=== PATIENT | female | born 1990 | race Hispanic/Latino ===

== ENCOUNTER 2020-05-24 14:16 | Inpatient (IN) | payer OTHER ==
[~2020-05-24 14:16] MED LIST: Bupivacaine HCl 0.5%/Epinephrine 1:200,000/PF 30 ml Vial ONE
[2020-05-24 16:44] LABS: Bacteria/HPF 2+ HPF (None Seen); Bilirubin Negative (Negative); Blood, Urine 2+ (Negative); Clarity Turbid (Clear); Glucose, Urine (Dipstick) Normal (Negative); Ketone, Urine Negative (Negative); Leukocyte Negative Leu/uL (Negative); Nitrite Negative (Negative); Protein, Urine (Dipstick) 600 mg/dL (Neg-Trace); Specific Gravity, Urine 1.027 (1.002-1.036); Transitional Epithelial 0-3 HPF (None Seen); Urobilinogen Normal mg/dL (Less than 2); WBC/HPF 21-50 HPF (0-3); pH, Urine 6.5 (5.0-9.0)
[2020-05-24 16:44] LABS: #Lymphocytes 1.1 thou/uL (1.20-3.40); #Monocytes 0.2 thou/uL (0.11-0.59); #Neutrophils 6.3 thou/uL (1.40-6.50); %Basophils 0.1 % (0.0-1.0); %Eosinophils 0.2 % (0.0-10.0); %Lymphocytes 14.4 % (21.0-51.0); %Monocytes 2.1 % (0.0-10.0); %Neutrophils 83.1 % (42.0-75.0); Hemoglobin 12.1 g/dL (12.0-16.0); Mean Corpuscular HGB CONC 31.5 g/dL (32.0-36.0); Mean Corpuscular Hemoglobin 28.9 pg (27.0-31.0); Mean Corpuscular Volume 91.6 fL (78.0-98.0); Mean Platelet Volume 10.6 fL (7.4-10.4); Platelet Count 141 thou/uL (130-400); RBC Distribution Width 14.4 % (11.5-14.5); Red Blood Cell (RBC) Count 4.19 mill/uL (4.20-5.40); White Blood Cell (WBC) Count 7.6 thou/uL (4.8-10.8)
[2020-05-24 16:50] LABS: Creatinine, Urine 185.97 mg/dL (47-110)
--- NOTE | 2020-05-24 16:53 | RAD ---
Exam: Chest one view HISTORY:COVID positive patient. patient. Chest pain and shortness of breath. Comparison: None FINDINGS: Cardiac silhouette: Normal Aorta: Unremarkable Pulmonary vessels: Normal Costophrenic angles: Clear LUNGS: Patchy interstitial and alveolar opacities predominantly in the lower lobes. Pneumothorax: None Osseous abnormalities: None IMPRESSION: Patchy interstitial and alveolar opacities, predominantly in the lower lobes. Continued s urveillance is recommended.
[2020-05-24 17:06] LABS: ALT (SGPT) 26 U/L (8-55); AST (SGOT) 61 U/L (5-34); Albumin 2.7 g/dL (3.5-5.0); Alkaline Phosphatase 310 U/L (40-110); Anion Gap 16 mmol/L (10-20); BUN (Urea Nitrogen) 11 mg/dL (7.0-18.7); Bilirubin, Total 0.5 mg/dL (0.2-1.2); Calc. Creatinine Clearance 0 mL/min (70-130); Calcium 8.1 mg/dL (7.8-10.44); Carbon Dioxide 13 mmol/L (22-29); Chloride 113 mmol/L (98-107); Estimated GFR-MDRD 87; Globulin 3.5 g/dL (2.4-3.5); Glucose 92 mg/dL (70-105); Lipase 43 U/L (8-78); Potassium 4.2 mmol/L (3.5-5.1); Protein, Total 6.2 g/dL (6.0-8.3); Sodium 138 mmol/L (136-145)
[2020-05-24] MEDS ORDERED: hydrALAZINE 20 MG/ML VIAL ONE (19:03)
[2020-05-24] MEDS ORDERED: Magnesium Sulfate 20 gm/500 ml 20 GM/500 ML BAG ONE ×2 (19:03)
[2020-05-24] MEDS ORDERED: Ibuprofen 800 MG TAB PO PRN (19:06)
[2020-05-24] MEDS ORDERED: HYDROcodone/Acetaminophen 5/325 mg Tablet PO PRN ×2 (19:06)
[2020-05-24] MEDS ORDERED: Ondansetron PF 4 MG/2 ML Vial IVP PRN (19:06)
[2020-05-24] MEDS ORDERED: Lidocaine 1% (PF) 30 ML VIAL SC PRN (19:06)
[2020-05-24] MEDS ORDERED: hydrALAZINE 20 MG/ML VIAL SLOW IVP PRN (19:06)
[2020-05-24] MEDS ORDERED: Promethazine HCl 25 MG/ML VIAL IM PRN (19:06)
[2020-05-24] MEDS ORDERED: Butorphanol Tartrate 1 MG/ML VIAL SLOW IVP PRN (19:06)
[2020-05-24] MEDS ORDERED: Calcium Gluc 4.6 MEQ/10 ML (100 MG/ML) SLOW IVP PRN (19:06)
[2020-05-24] MEDS ORDERED: NS / Oxytocin 40 units/1000ml 1,000 ML IV PRN (19:06)
--- NOTE | 2020-05-24 19:06 | PDOC.BPN ---
- Brief Progress Note OB Faculty Patient seen at bedside, LDR 7 DX: severe PRE, COVID pos status from May 17, labor at 35 weeks See full dictation I have tiger texted south
[2020-05-24] MEDS ORDERED: Betamet Acet/Betamet Na Ph 30 MG/5 ML VIAL ONE (19:07)
[2020-05-24] MEDS ORDERED: Penicillin G Potassium 5 MILL.UNITS VIAL ONE (19:08)
[2020-05-24] MEDS: Magnesium Sulfate 20 gm/500 ml 20 GM/500 ML BAG IVPB SCH (19:09)
[2020-05-24] MEDS: Penicillin G Potassium 5 MILL.UNITS in Sodium Chloride 0.9% 100 ML IVPB SCH (19:12)
--- NOTE | 2020-05-24 19:12 | PDOC.BPN ---
- Brief Progress Note Other DX mild viral pneumonia on CXR from ER
[2020-05-24] MEDS ORDERED: Magnesium Sulfate 20 GM/WATER 500 ML BAG IVPB SCH (19:15)
--- NOTE | 2020-05-24 19:45 | HP ---
TIME OF EVALUATION: Roughly 1900 (1855) hours, room is [facility] room 7. The patient was brought up from the ER after being evaluated and worked up there for COVID positive status and chest discomfort. After she was deemed stable, she was transferred to Labor and Delivery. Patient of Dr. Boggs. HISTORY OF PRESENT ILLNESS: This is a 30-year-old, G1, P0 with a due date of June 30, who was at 34 weeks and 5 days, who tested positive for COVID on May 17 , but has not had a fever for 72 hours. She states that she has had increased cramping, a little bit of chest discomfort, a little bit of shortness of breath and noted some possible leakage of fluid at around 1:00 p.m. She has good movement. She does not have any diarrhea or vaginal bleeding. PAST MEDICAL HISTORY: Otherwise negative except for the COVID positive status on the 6th of this month. PAST SURGICAL HISTORY: None. ALLERGIES: NONE. SOCIAL HISTORY: Negative. OB HISTORY: She is a G1, P0, and sees Dr. Boggs. PHYSICAL EXAMINATION: VITAL SIGNS: She is lying in bed with a mask and first blood pressure was 165/ 103, pulse is in the 90s. She is afebrile. GENERAL: She is in no acute distress. EXTREMITIES: She does have some 2+ pitting edema at the feet. ABDOMEN: Gravid, but nontender. I performed a sterile speculum examination due to her possible rupture status and there was clear fluid per os. There was no need for an AmniSure. CERVICAL: I checked her cervix with a sterile glove and she is 6 cm dilated, 90 % effaced, 0 station. Cephalic. There are no vulvovaginal lesions. On the heart monitor, heart tones are in the 140s and reactive category I. Contractions are irregular on TOCO, but about every 3 to 5 minutes or so. LABORATORY DATA: She did have a cath urine in the ER, which showed proteinuria with a urine protein to creatinine ratio that was 5. She did have a slight bump in one of her liver function tests, but otherwise was normal. CBC was normal. Chest x-ray done in the ER showed mild changes compatible with lower lobe viral pneumonia. ASSESSMENT: This is a 30-year-old, G1 at 34 weeks and 5 days, I am at bedside now, who does not appear to be in any acute respiratory distress, COVID positive on the 6th of this month, but no fevers for 3 days. She has prelabor rupture of membranes, and is now in active phase of labor at 6 cm. Mild viral pneumonis on CXR PLAN: 1. Admit to Labor and Delivery. 2. Magnesium sulfate for blood pressure. 3. Apresoline p.r.n. 4. Steroids, now for lung maturity and this may even help her lung status. Per [facility], not contraindicated. 5. Penicillin for GBS coverage. 6. We will notify NICU of delivery. Job ID: [id number] [facility]
[2020-05-24] MEDS ORDERED: Fentanyl 4 mcg/Bup 0.1% Cadd 100 ML ONE (19:48)
[2020-05-24] MEDS ORDERED: Betamet Acet/Betamet Na Ph 30 MG/5 ML VIAL IM SCH (20:00)
[2020-05-24 20:30] LABS: HBSAg Index 0.17 S/CO (0-0.99); HIV (1/2) Antibody/Antigen Non-Reactive (NonReactive); HIV 1/2 INDEX 0.26 S/CO (<1.00); Hep B Surf Ag Non-Reactive S/CO (NonReactive)
[2020-05-24 20:51] LABS: Syphilis Antibody Nonreactive (Nonreactive); Syphilis Antibody Index 0.03 S/CO (<1.00 Non-Reactive)
--- NOTE | 2020-05-24 22:37 | PDOC.BPN ---
- Brief Progress Note CX still 6-7cm. I have ordered oxytocin for augmentation.
[2020-05-24] MEDS: NS w/ Oxytocin 10 units 500 ML IV SCH (22:42)
[2020-05-24] MEDS: Penicillin G 2.5 MILL.units 2.5 MILL.UNITS in Premix Bag 1 BAG IVPB SCH (23:29)
[2020-05-25] MEDS: Penicillin G 2.5 MILL.units 2.5 MILL.UNITS in Premix Bag 1 BAG IVPB SCH (03:11)
[2020-05-25] MEDS: Magnesium Sulfate 20 gm/500 ml 20 GM/500 ML BAG IVPB SCH ×2 (03:13→14:10)
[2020-05-25] MEDS ORDERED: Azithromycin 500 MG VIAL ONE (04:32)
[2020-05-25] MEDS ORDERED: Ketamine 50 MG/ML (10ML VIAL) ONE (04:52)
[2020-05-25] MEDS ORDERED: Oxytocin 10 UNITS/ML VIAL ONE (04:52)
[2020-05-25] MEDS ORDERED: PHENYLEPHRINE-NS 100 MCG/ML 10 ML SYRINGE ONE (05:06)
[2020-05-25] MEDS ORDERED: Dexamethasone 4 mg/ml Vial ONE ×2 (05:06→16:05)
[2020-05-25] MEDS ORDERED: Ondansetron PF 4 MG/2 ML Vial ONE (05:06)
[2020-05-25] MEDS ORDERED: Ketorolac Tromethamine 30 MG/ML VIAL ONE (05:06)
[2020-05-25] MEDS ORDERED: MORPHINE 5 MG/10 ML PF VIAL ONE (05:18)
[2020-05-25 05:19] LABS: Actual Bicarbonate (HCO3a) 12.1 mEq/L (22-28); Base Excess (BEa) -23.5 mEq/L (-2.0 to +3.0)
[2020-05-25 05:24] LABS: INR-International Normal Ratio 0.9; PTT 32.6 sec (22.9-36.1); Prothrombin Time 11.7 sec (12.0-14.7)
[2020-05-25 05:27] LABS: Base Excess -21.6 mEq/L (-2.0 to +3.0); pH (Cord, venous) 6.91 (7.32-7.43)
[2020-05-25 05:28] LABS: Actual Bicarbonate (HCO3v) 12 mEq/L (22-28)
[2020-05-25] MEDS ORDERED: L&D-Morphine 4 MG/ML VIAL SLOW IVP PRN (05:43)
[2020-05-25] MEDS ORDERED: Meperidine HCl/PF 25 MG/ML VIAL SLOW IVP PRN (05:43)
[2020-05-25] MEDS ORDERED: diphenhydrAMINE 50 MG/ML VIAL IVP PRN (05:43)
[2020-05-25] MEDS ORDERED: Ondansetron HCl/PF 4 MG/2 ML Vial IVP PRN (05:43)
[2020-05-25] MEDS ORDERED: Ketorolac Tromethamine 30 MG/ML VIAL IVP PRN (05:43)
[2020-05-25] MEDS ORDERED: Naloxone HCl 0.4 mg/ml Vial IV PRN (05:43)
[2020-05-25] MEDS ORDERED: HYDROmorphone 2 MG/ML VIAL SLOW IVP PRN (05:43)
[2020-05-25] MEDS ORDERED: Ondansetron PF 4 MG/2 ML Vial IVP PRN (05:43)
[2020-05-25] MEDS ORDERED: Promethazine HCl 25 MG/ML VIAL IM PRN (05:43)
[2020-05-25] MEDS ORDERED: Naloxone HCl 0.4 mg/ml Vial IVP PRN ×2 (05:43)
[2020-05-25] MEDS ORDERED: Promethazine HCl 25 MG SUPP PR PRN (05:43)
[2020-05-25] MEDS ORDERED: Communication Order-Pharmacy FS SCH (05:45)
[2020-05-25] MEDS ORDERED: Ketorolac Tromethamine 30 MG/ML VIAL IVP SCH (05:45)
--- NOTE | 2020-05-25 06:18 | OP ---
DATE OF PROCEDURE: 05/25/2020 PREOPERATIVE DIAGNOSES: 1. The patient with COVID positive status. 2. COVID viral pneumonia. 3. 34 weeks and 6 days. 4. Severe preeclampsia, on magnesium sulfate. 5. Second stage category II strip with severe recurrent variable decelerations down to the 60s, lasting 40-50 seconds. 6. Unsuccessful attempt at low vacuum (three pull attempts- no pop off). POSTOPERATIVE DIAGNOSES: 1. The patient with COVID positive status. 2. Placental abruption noted after hysterotomy entry (about 200-300 mL clot). 3. Baby position OP and asynclitic PROCEDURE PERFORMED: 1. Primary low transverse section via Pfannenstiel. 2. Two-layer hysterotomy closure. ASSISTANTS: 1. Svitlana Ortega MD. 2. Alen Lucas DO with the Family Medicine program. ANESTHESIA: Labor epidural that was dosed before coming back to the OR. ANTIBIOTICS: Ancef and Zithromax per protocol. FINDINGS: 1. There was about 200-300 mL of clot when we entered the hysterotomy. 2. Baby was asynclitic and in the occiput posterior position. 3. Vaginal hand was not necessary for extraction of the child through the hysterotomy. 4. NICU present for delivery. 5. Hemostasis post repair. 6. Three-vessel cord. 7. Baby required positive pressure ventilation, but did not have cardiac resuscitation. ESTIMATED BLOOD LOSS: About 400 mL, but the QBL is pending. IV FLUIDS: About 800 mL crystalloid. URINE OUTPUT: By Sawyer. COMPLICATIONS: None. COUNTS: Correct. PATHOLOGY: Placenta and umbilical arterial cord gas were sent. DISPOSITION: To prolonged recovery for her continued use of magnesium sulfate for her severe preeclampsia and we will start Lovenox at 12 hours due to her COVID positive state. INDICATION FOR : This patient had viral pneumonia from COVID and was unable to push successfully at the second stage and in the presence of severe variables, I attempted to do a low vacuum at +3 station. After three attempts and no pop-offs, I had no further descent. We then transported the patient to . It is important to note that she was having some dark red blood per vagina after I removed the vacuum in LDR 7. This was evidence of her abruption, which I believe was occurring in LDR 7. DESCRIPTION OF PROCEDURE: After proper informed consent was explained to the patient, she was transported to [facility]. Even though I called this a stat and everybody moved as fast as possible, the infectious disease precaution and getting the room prepared took about 15 minutes. Nonetheless, we moved as fast as possible and performed her under her dosed regional anesthetic. Low transverse skin incision was made in a Pfannenstiel fashion. Bovie cautery on cut mode was used to dissect the subcutaneous tissue off the fascia. Fascia was identified and entered in a transverse fashion with Bovie cautery on cut mode. Rectus muscles were off the midline with Newby scissors both inferiorly and superiorly. Rectus muscles were then . Underlying peritoneum was entered bluntly and an Patrick O retractor was then placed. A low transverse hysterotomy was made without bladder flap creation. No vaginal hand was noted, but the baby was noted to be impacted in the pelvis and I was able to free it and break the vacuum seal from the deeply engaged head. Dr. Ortega again attempted to remove some of the asynclitic position of the head and then I extracted the baby without complication. This was done without much complication. Baby was then delivered and the clamp was cut and handed to the NICU team without delayed cord clamping. We left a cord segment for cord gas and collected a cord blood sample. Placenta was then sent to Pathology and it was intact. It is important to note that as soon as we entered the hysterotomy, there was about 200 to 300 mL of dark adherent clot that expressed out of the hysterotomy. Hysterotomy was closed with #1 Monocryl in a running locking fashion. An imbricating layer was also done, so it was closed in two layers. Copious irrigation revealed no further bleeding and then the rectus muscles were reapproximated in the midline using 2-0 chromic. After confirming no bleeding under the fascial edge, fascia was closed with 0 PDS x2 in a running nonlocking fashion. Subcutaneous tissue was copiously irrigated and closed with plain gut. Skin was closed in a subcuticular fashion by Dr. Lucas without issues. All counts were correct. The baby was transported to the NICU and seemed to be stable. I do not have a 1 or 5-minute because they were still calculating those, but I did send a cord gas and I am awaiting that result. Again, we will continue her magnesium . The patient's arterial blood gas was 6.8 with the base excess -23. Again, baby did not need resuscitation at delivery and so I will follow. Job ID: [id number] [facility]
--- NOTE | 2020-05-25 06:24 | PDOC.BPN ---
- Brief Progress Note I reviewed abruption with the . Patient will return to [facility] for Mag. Dionne at 12 hrs. Baby's apgars were . I saw baby in NICU, stable on CPAP Bubble O2
--- NOTE | 2020-05-25 07:01 | PDOC.BPN ---
- Brief Progress Note Per Dr Sood and Dr Ortega, this patient qualifies for the convalescent plasma study. That research team will come talk to her. I relayed this message to Dr Boggs
--- NOTE | 2020-05-25 07:21 | PRG ---
DATE OF SERVICE: 05/25/2020 PREOP NOTE TIME: Roughly 0428 hours. In brief, I was called that the patient was ready for delivery. She initially tried to push, but she could not push as she was short of breath because of her COVID positive state and her viral pneumonia. I arrived and the patient's exam was complete, complete, and +3. There were deep severe variables, even though the patient has O2 by nasal cannula on, the patient is just not able to push. I did attempt a vacuum at +3 (low vacuum) and I tried three times with no pop-offs noted. However, there was no descent and there is no maternal effort because I do not think she can push because of her viral pneumonia. Because there is no descent and because of the deep variables, I have decided to do a because I just do not see this child descending anymore past +3. NICU was in the room with me. She is also having slight to moderate dark blood passing around the head...abruption? I have discussed this with the patient. I have called a stat and I have asked Family Medicine, OB attending to be present for a vaginal hand if needed. We will proceed with a C- section at this time. Anesthesia aware. L&D OR getting COVID ready. Job ID: [id number] [facility]
--- NOTE | 2020-05-25 08:01 | PDOC.BPN ---
- Brief Progress Note Lab check: PT and PTT normal
[2020-05-25] MEDS ORDERED: Morphine 4 MG/ML VIAL ONE (10:39)
--- NOTE | 2020-05-25 10:56 | PDOC.FPRHP ---
- History of Present Illness Chief Complaint: Shortness of breath/Chest pain History of Present Illness: 30 yo at 34.6 weeks gestation who delivered on 0 2019 via pLTCs and is a patient of Dr. Boggs. Consult was placed secondary to patients covid pneumonia and acute hypoxic respiratory failure. On 05/17 pt was diagnosed with COVID pna. Since that time she has been experiencing intermittent shortness of breath and chest pain. However yesterday she developed lower abdominal pain and worsening shortness of breath. She was seen in the emergency department and evaluated. She was found to be hypoxic and requiring supplemental oxygen. Patient also noted recent loss of fluid earlier in the day so she was admitted to the labor and delivery department for expectant management. Her labor progression was complicated by maternal hypoxia with poor pushing effort as well as presumed abruption indicated by variable decelerations with significant vaginal bleeding during labor. An emergency was the performed that was essentially uncomplicated and resulted in a male infant with APGARS of 1/7/ 7. The infant was subsequently admitted to the NICU. Since delivery patient has required 2 liters of supplemental oxygen to maintain oxygen saturations greater than 95%. She does note continued symptoms of shortness of breath. Patient also has experiencing poor ability to inspire deeply both secondary to her covid pneumonia as well as her recent . - Allergies/Adverse Reactions Allergies Allergy/AdvReac Type Severity Reaction Status Date / Time No Known Allergies Allergy Unverified 05/24/20 19:00 - Home Medications Medication Instructions Recorded Confirmed Type No Known 05/24/20 05/24/20 History - History PMHx: None PSHx: None FHx: Non contributory Social: Denies alcohol, tobacco, drugs - Review of Systems General: reports: fatigue. denies: fever/chills (none for 72hrs) Eyes: denies: vision changes, other ENT: denies: nasal congestion, rhinorrhea Respiratory: reports: cough, congestion, shortness of breath Cardiovascular: reports: chest pain. denies: palpitation, edema Gastrointestinal: reports: abdominal pain (normal post op). denies: nausea, vomiting, diarrhea Genitourinary: denies: dysuria, polyuria Skin: denies: rashes, lesions Musculoskeletal: denies: pain, tenderness Neurological: denies: numbness, weakness - Vital signs BP: 132/81 HR: 75 Sat: 90% 3L - Physical Exam Constitutional: NAD, awake, alert and oriented, well developed HEENT: EOMI, MMM Heart: RRR, normal S1/S2, no murmurs/rubs/gallops -Lungs: Poor inspiratory effort, decreased breath sounds throughout Abdomen: soft -Abdomen: Appropriately tender to touch, incision CDI, post- fundus palpable that is firm Musculoskeletal: normal structure, normal tone Neurological: no focal deficit Skin: good turgor, capillary refill <2 seconds Heme/Lymphatic: no unusual bruising or bleeding, no purpura Psychiatric: normal mood and affect, good judgment and insight FMR H&P: Results - Labs Result Diagrams: 05/24/20 16:31 05/24/20 16:31 Lab results: WBC 7.6 thou/uL (4.8-10.8) 05/24/20 16:31 Hgb 12.1 g/dL (12.0-16.0) 05/24/20 16:31 Hct 38.4 % (36.0-47.0) 05/24/20 16:31 MCV 91.6 fL (78.0-98.0) 05/24/20 16:31 Plt Count 141 thou/uL (130-400) 05/24/20 16:31 Neutrophils % 83.1 % (42.0-75.0) H 05/24/20 16:31 Sodium 138 mmol/L (136-145) 05/24/20 16:31 Potassium 4.2 mmol/L (3.5-5.1) 05/24/20 16:31 Chloride 113 mmol/L (98-107) H 05/24/20 16:31 Carbon Dioxide 13 mmol/L (22-29) L 05/24/20 16:31 BUN 11 mg/dL (7.0-18.7) 05/24/20 16:31 Creatinine 0.78 mg/dL (0.6-1.1) 05/24/20 16:31 Glucose 92 mg/dL (70-105) 05/24/20 16:31 Lactic Acid 1.3 mmol/L (0.5-2.2) 05/24/20 16:31 Calcium 8.1 mg/dL (7.8-10.44) 05/24/20 16:31 Total Bilirubin 0.5 mg/dL (0.2-1.2) 05/24/20 16:31 AST 61 U/L (5-34) H 05/24/20 16:31 ALT 26 U/L (8-55) 05/24/20 16:31 Alkaline Phosphatase 310 U/L (40-110) H 05/24/20 16:31 Serum Total Protein 6.2 g/dL (6.0-8.3) 05/24/20 16:31 Albumin 2.7 g/dL (3.5-5.0) L 05/24/20 16:31 Lipase 43 U/L (8-78) 05/24/20 16:31 Urine Ketones Negative mg/dL (Negative) 05/24/20 16:16 Urine Blood 2+ (Negative) A 05/24/20 16:16 Urine Nitrite Negative (Negative) 05/24/20 16:16 Ur Leukocyte Esterase Negative Velma/uL (Negative) 05/24/20 16:16 Urine RBC 7-10 HPF (0-3) A 05/24/20 16:16 Urine WBC 21-50 HPF (0-3) A 05/24/20 16:16 Ur Squamous Epith Cells 7-10 HPF (0-3) A 05/24/20 16:16 Urine Bacteria 2+ HPF (None Seen) A 05/24/20 16:16 FMR H&P: A/P - Problem List (1) COVID-19 Current Visit: Yes Status: Acute Code(s): U07.1 - COVID-19 (2) delivery delivered Current Visit: Yes Status: Acute Code(s): O82 - ENCOUNTER FOR DELIVERY WITHOUT INDICATION (3) Placenta abruption, delivered, current hospitalization Current Visit: Yes Status: Acute Code(s): O45.90 - PREMATURE SEPARATION OF PLACENTA, UNSP, UNSP TRIMESTER (4) labor in third trimester Current Visit: Yes Status: Acute Code(s): O60.03 - LABOR WITHOUT DELIVERY, THIRD TRIMESTER (5) Severe pre-eclampsia Current Visit: Yes Status: Acute Code(s): O14.10 - SEVERE PRE-ECLAMPSIA, UNSPECIFIED TRIMESTER (6) Viral pneumonia Current Visit: Yes Status: Acute Code(s): J12.9 - VIRAL PNEUMONIA, UNSPECIFIED FMR H&P: Upper Level - Plan Date/Time: 05/25/20 1055 COVAR PNA - Discussed case with Dr. Yepez - Pt on day 7-8 illness - Ordered remdesivir, convalescent plasma approval pending, dexamethasone daily , incentive spirometry - Currently on 3L O2, if requirement increases may need to consider high flow NC and pulm consult - Will attempt position changes/proning as tolerated - Supplemental O2 with goal >92% Pre E - Managed by primary Dr. Boggs - Mg level ordered, will lower mg to least effective dose - Once patient is off of Mg I feel she would benefit from transfer to [facility] obs floor S/p - PPROM and placental abruption - POD #0 - Progressing normally from post operative/ perspective Alen Lucas - PGY2
[2020-05-25] MEDS ORDERED: Morphine 2 MG/ML VIAL SLOW IVP PRN ×2 (12:04→17:45)
--- NOTE | 2020-05-25 12:22 | PDOC.PP ---
Post Progress Note Post Day #: 0 Subjective: pain controlled, main concern is sore throat when she swallows PO intake tolerated: no Flatus: no Ambulation: no Weight Weight 175 lb - Physical Examination General: NAD Respiratory: non-labored breathing (02 @ 95%+ on 2L, reported 88% off) Skin: CS incision dry & intact Neurological: no gross focal deficits Psychiatric: A&Ox3, normal affect Result Diagrams: 05/24/20 16:31 05/24/20 16:31 Additional Labs: Post Labs Blood Type O POSITIVE 05/24/20 17:29 Hep Bs Antigen Non-Reactive S/CO (NonReactive) 05/24/20 19:39 (1) COVID-19 Code(s): U07.1 - COVID-19 Status: Acute (2) delivery delivered Code(s): O82 - ENCOUNTER FOR DELIVERY WITHOUT INDICATION Status: Acute (3) labor in third trimester Code(s): O60.03 - LABOR WITHOUT DELIVERY, THIRD TRIMESTER Status: Acute (4) Severe pre-eclampsia Code(s): O14.10 - SEVERE PRE-ECLAMPSIA, UNSPECIFIED TRIMESTER Status: Acute (5) Viral pneumonia Code(s): J12.9 - VIRAL PNEUMONIA, UNSPECIFIED Status: Acute - Assessment/Plan POD1 sp stat CS for abruption and NRFHT after PPROM @ 34 weeks-in the setting of C19 positive and severe preeclampsia. -Continue mag PP but monitor closely for respiratory depression -Baby in NICU -I discussed starting Lovenox and pt consented for convalescent plasma today. Family medicine team consulted to assist in C19 management and optimization while requiring supplemental O2, recommendations appreciated. Plan to DC magnesium @ 24 hours PP.
[2020-05-25] MEDS ORDERED: Dexamethasone 20 MG/5 ML VIAL SLOW IVP SCH (14:00)
--- NOTE | 2020-05-25 14:07 | RAD ---
CHEST ONE VIEW: 05/25/20 COMPARISON: 05/24/20 exam. HISTORY: COVID positive with hypoxia. Heart size is enlarged. Diffuse bilateral infiltrative lung changes are not improved as compared to t he prior examination. Some of the changes of the right mid lung feel maybe slightly increased. IMPRESSION: Bilateral infiltrates. Some of the right mid lung field parenchymal changes are slightly more promine nt. POS: ANA
[2020-05-25] MEDS ORDERED: Morphine 4 MG/ML VIAL SLOW IVP PRN (14:33)
[2020-05-25] MEDS ORDERED: Dexamethasone 4 mg/ml Vial SLOW IVP SCH (15:30)
[2020-05-25] MEDS: Enoxaparin Sodium 40 MG/0.4 ML SYRINGE SC SCH (18:45)
[2020-05-26 05:36] LABS: Band 37 % (5-11); Hemoglobin 10.3 g/dL (12.0-16.0); Lymphocytes 5 % (21-51); MDiff Complete? YES; Mean Corpuscular HGB CONC 32.8 g/dL (32.0-36.0); Mean Corpuscular Volume 91.6 fL (78.0-98.0); Monocytes 2 % (0-10); Neutrophil 56 % (42-75); Nucleated RBC 1 % (0); Platelet Count 204 thou/uL (130-400); Platelet Morphology Comment Appears Adequate; RBC Distribution Width 14.2 % (11.5-14.5); Red Blood Cell (RBC) Count 3.42 mill/uL (4.20-5.40); White Blood Cell (WBC) Count 19.5 thou/uL (4.8-10.8)
[2020-05-26 05:45] LABS: ALT (SGPT) 15 U/L (8-55); AST (SGOT) 36 U/L (5-34); Albumin 2.3 g/dL (3.5-5.0); Alkaline Phosphatase 223 U/L (40-110); Anion Gap 11 mmol/L (10-20); BUN (Urea Nitrogen) 12 mg/dL (7.0-18.7); Bilirubin, Total 0.2 mg/dL (0.2-1.2); Calc. Creatinine Clearance 152 mL/min (70-130); Calcium 7.1 mg/dL (7.8-10.44); Carbon Dioxide 18 mmol/L (22-29); Chloride 110 mmol/L (98-107); Estimated GFR-MDRD Greater than 90; Globulin 2.8 g/dL (2.4-3.5); Glucose 131 mg/dL (70-105); Potassium 4.5 mmol/L (3.5-5.1); Protein, Total 5.1 g/dL (6.0-8.3); Sodium 134 mmol/L (136-145)
--- NOTE | 2020-05-26 06:31 | PDOC.FM ---
- Subjective Subjective: pt main complaints this morning is sore throat and fatigue. she is ambulating minimally within the room. has been using incentive spirometer which has improved her O2 sats. Currently on 3L with sats in mid 90's. Denies any fever, chills, headache. Has had recurrence of her elevated BP's - managed by primary. - Objective Vital Signs & Weight: Vital Signs (12 hours) Pulse Ox 05/25/20 20:00 93 L Weight Weight 79.379 kg I&O: 05/24/20 05/25/20 05/26/20 06:59 06:59 06:59 Intake Total 0 Output Total 330 50 Balance -330 -50 Result Diagrams: 05/26/20 04:59 05/26/20 04:59 Phys Exam - Physical Examination HEENT: moist MMs, sclera anicteric Diffuse rhonchi with scant wheezing, improved inspiration from yesterday Cardiovascular: RRR, no significant murmur Gastrointestinal: soft Appropriately TTP Musculoskeletal: no edema Neurological: non-focal, moves all 4 limbs Psychiatric: normal affect, A&O x 3 Deviation from normal: Surgical incision CDI Dx/Plan (1) COVID-19 Code(s): U07.1 - COVID-19 Status: Acute (2) delivery delivered Code(s): O82 - ENCOUNTER FOR DELIVERY WITHOUT INDICATION Status: Acute (3) Placenta abruption, delivered, current hospitalization Code(s): O45.90 - PREMATURE SEPARATION OF PLACENTA, UNSP, UNSP TRIMESTER Status: Acute (4) labor in third trimester Code(s): O60.03 - LABOR WITHOUT DELIVERY, THIRD TRIMESTER Status: Acute (5) Severe pre-eclampsia Code(s): O14.10 - SEVERE PRE-ECLAMPSIA, UNSPECIFIED TRIMESTER Status: Acute (6) Viral pneumonia Code(s): J12.9 - VIRAL PNEUMONIA, UNSPECIFIED Status: Acute - Plan Plan: COVID PNA - currently on 3L NC with stable sats - was not approved for remdesivir yesterday, will re-eval today - received convalescent plasma yesterday - primary complaint today is sore throat - will give lozenges - wheezing on exam, will add albuterol HFA Pre E - Managed by primary Dr. Boggs - Mg stopped last night - Pressures again elevated today, starting labetalol S/p - PPROM and placental abruption - POD #1 - Progressing normally from post operative/ perspective Alen Lucas - PGY2
[2020-05-26] MEDS: Lactated Ringer's 1,000 ML IV SCH (07:19)
[2020-05-26] MEDS: Dexamethasone 4 mg/ml Vial SLOW IVP SCH (08:05)
[2020-05-26] MEDS ORDERED: Dexamethasone 4 mg/ml Vial ONE (08:07)
[2020-05-26] MEDS: Cepastat Lozenges 1 LOZ PO PRN (09:39)
--- NOTE | 2020-05-26 10:56 | PDOC.PP ---
Post Progress Note Post Day #: 2 Subjective: no HINTON or blurry vision, minimal abdominal pain, main concern is cough and pain w swallowing, baby doing well in NICU PO intake tolerated: yes Flatus: no Ambulation: yes Vital Signs (12 hours) Pulse BP Pulse Ox 05/26/20 08:03 93 161/104 H 05/26/20 08:00 90 L Weight Weight 175 lb - Physical Examination General: NAD Respiratory: non-labored breathing (wheezing noted on exam w Dr. Lucas) Abdominal: no distention (mild tympany noted) Fundus firm & at: below umb Skin: CS incision dry & intact (dressing CDI), no rash Neurological: no gross focal deficits Psychiatric: A&Ox3, normal affect Result Diagrams: 05/26/20 04:59 05/26/20 04:59 Additional Labs: Post Labs Blood Type O POSITIVE 05/24/20 17:29 Hep Bs Antigen Non-Reactive S/CO (NonReactive) 05/24/20 19:39 (1) COVID-19 Code(s): U07.1 - COVID-19 Status: Acute (2) delivery delivered Code(s): O82 - ENCOUNTER FOR DELIVERY WITHOUT INDICATION Status: Acute (3) labor in third trimester Code(s): O60.03 - LABOR WITHOUT DELIVERY, THIRD TRIMESTER Status: Acute (4) Severe pre-eclampsia Code(s): O14.10 - SEVERE PRE-ECLAMPSIA, UNSPECIFIED TRIMESTER Status: Acute (5) Viral pneumonia Code(s): J12.9 - VIRAL PNEUMONIA, UNSPECIFIED Status: Acute - Assessment/Plan POD2 -1CS- pain controlled, tolerating diet and pain controlled -severe PIH- mag DC yesterday due to respiratory depression concerns, severe range BP today, hydralazine PRN ordered and will start labetalol 100mg BID and titrate as needed -C19 pos w viral pneumonia-Family Medicine assisting in management, rec'd plasma yesterday, pharmacy did not approve order for remdesivir despite ID recommendation, on 3L ( up from 2L yesterday but down for 4L overnight) with 02 sat stable while speaking full sentences. Albuterol ordered for wheezing on exam per FP team, lozenges ordered for painful swallowing.
[2020-05-26] MEDS ORDERED: Labetalol 100 MG TAB PO SCH (11:30)
[2020-05-26] MEDS: Albuterol 200 PUFF (6.7GM INHALER) INH SCH ×3 (12:49→21:08)
[2020-05-26] MEDS ORDERED: REMDESIVIR (EUA) 200 MG in Sodium Chloride 0.9% 250 ML 210 ML IV SCH (14:15)
[2020-05-26] MEDS: Enoxaparin Sodium 40 MG/0.4 ML SYRINGE SC SCH (18:17)
[2020-05-26] MEDS: Labetalol 100 MG TAB PO SCH (21:09)
[2020-05-27] MEDS: Albuterol 200 PUFF (6.7GM INHALER) INH SCH ×5 (05:15→21:15)
[2020-05-27 06:22] LABS: Hemoglobin 9.5 g/dL (12.0-16.0); Mean Corpuscular HGB CONC 32.2 g/dL (32.0-36.0); Mean Corpuscular Hemoglobin 29.2 pg (27.0-31.0); Mean Corpuscular Volume 90.7 fL (78.0-98.0); Mean Platelet Volume 9.5 fL (7.4-10.4); Platelet Count 214 thou/uL (130-400); RBC Distribution Width 14.4 % (11.5-14.5); Red Blood Cell (RBC) Count 3.27 mill/uL (4.20-5.40); White Blood Cell (WBC) Count 17.1 thou/uL (4.8-10.8)
--- NOTE | 2020-05-27 06:22 | PDOC.FM ---
- Subjective Subjective: Pt complained of extreme fatigue and worsening SOB with ambulation this morning. Pt feeling well after resting. Overnight de-satted after ambulation but has felt less SOB this morning. - Objective Vital Signs & Weight: Vital Signs (12 hours) Pulse BP Pulse Ox 05/27/20 04:00 94 L 05/26/20 21:09 93 122/69 05/26/20 20:00 95 Weight Weight 79.379 kg I&O: 05/25/20 05/26/20 05/27/20 06:59 06:59 06:59 Intake Total 0 Output Total 330 50 Balance -330 -50 Result Diagrams: 05/27/20 05:57 05/27/20 05:57 Phys Exam - Physical Examination Constitutional: NAD HEENT: moist MMs Respiratory: no wheezing Diffuse rhonchi, mildly tachypneic Cardiovascular: RRR, no significant murmur Gastrointestinal: soft, non-tender Musculoskeletal: edema present Neurological: moves all 4 limbs Psychiatric: normal affect, A&O x 3 Skin: cap refill <2 seconds Dx/Plan (1) COVID-19 Code(s): U07.1 - COVID-19 Status: Acute (2) delivery delivered Code(s): O82 - ENCOUNTER FOR DELIVERY WITHOUT INDICATION Status: Acute (3) Placenta abruption, delivered, current hospitalization Code(s): O45.90 - PREMATURE SEPARATION OF PLACENTA, UNSP, UNSP TRIMESTER Status: Acute (4) labor in third trimester Code(s): O60.03 - LABOR WITHOUT DELIVERY, THIRD TRIMESTER Status: Acute (5) Severe pre-eclampsia Code(s): O14.10 - SEVERE PRE-ECLAMPSIA, UNSPECIFIED TRIMESTER Status: Acute (6) Viral pneumonia Code(s): J12.9 - VIRAL PNEUMONIA, UNSPECIFIED Status: Acute - Plan Plan: COVID PNA - currently on 5L NC with sats in mid 90's. Worsening clinical appearance. ABG pH: 7.42, pCO2: 31, pO2: 63 - pt meets threshould for high flow nasal cannula and would benefit from closer respiratory monitoring. Will plan to transfer to [facility] - approved for remdesivir yesterday - received convalescent plasma 2 days ago - albuterol HFA and lozenges for sore throat Pre E - Managed by primary Dr. Boggs - Mg stopped two days ago but still experiencing severe range - PRN hydralazine and labetalol started yesterday with improvement but continued intermittent elevation S/p - PPROM and placental abruption - POD #2 - Progressing normally from post operative/ perspective Alen Lucas - PGY2
[2020-05-27 06:37] LABS: Actual Bicarbonate (HCO3a) 20.1 mEq/L (22-28); Base Excess (BEa) -3.5 mEq/L (-2.0 to +3.0); CO2 Tension 31.5 mmHg (35.0-45.0); Calcium, Ionized (arterial) 1.11 mmol/L (1.12-1.30); Carboxyhemoglobin (COHb) 0.3 gm% (0.0-3.0); Hemoglobin (Hb) 11.2 g/dL (12.0-16.0); O2 Tension (PaO2), arterial 62.9 mmHg (80.0-100.0); Potassium - ABG Lab 4.03 mmol/L (3.70-5.30); pH, Arterial 7.42 (7.35-7.45)
[2020-05-27 06:38] LABS: Puncture Site LRA
[2020-05-27 06:39] LABS: ALV-art Gradient 182.925 (0-20)
[2020-05-27 06:42] LABS: Band 11 % (5-11); Lymphocytes 7 % (21-51); MDiff Complete? YES; Metamyelocyte 1 % (0-0); Monocytes 3 % (0-10); Myelocyte 7 % (0-0); Neutrophil 71 % (42-75); Nucleated RBC 1 % (0); Platelet Morphology Comment Appears Adequate; Polychromasia SLIGHT = 2-3 cells (100X) (0-2/hpf)
[2020-05-27 06:44] LABS: ALT (SGPT) 13 U/L (8-55); AST (SGOT) 35 U/L (5-34); Albumin 2.3 g/dL (3.5-5.0); Alkaline Phosphatase 216 U/L (40-110); Anion Gap 12 mmol/L (10-20); BUN (Urea Nitrogen) 17 mg/dL (7.0-18.7); Bilirubin, Total 0.3 mg/dL (0.2-1.2); Calc. Creatinine Clearance 175 mL/min (70-130); Calcium 7.4 mg/dL (7.8-10.44); Carbon Dioxide 20 mmol/L (22-29); Chloride 113 mmol/L (98-107); Estimated GFR-MDRD Greater than 90; Globulin 2.8 g/dL (2.4-3.5); Glucose 76 mg/dL (70-105); Potassium 4.2 mmol/L (3.5-5.1); Protein, Total 5.1 g/dL (6.0-8.3); Sodium 141 mmol/L (136-145)
[2020-05-27 06:45] LABS: ALT (SGPT) 12 U/L (8-55); AST (SGOT) 38 U/L (5-34); Albumin 2.3 g/dL (3.5-5.0); Alkaline Phosphatase 213 U/L (40-110); Bilirubin, Direct 0.2 mg/dL (0.1-0.3); Bilirubin, Total 0.2 mg/dL (0.2-1.2); Protein, Total 5.1 g/dL (6.0-8.3)
[2020-05-27] MEDS ORDERED: Ibuprofen 600 MG TAB PO PRN (07:37)
--- NOTE | 2020-05-27 07:44 | RAD ---
EXAM: Single view of the chest HISTORY: Hypoxia COMPARISON: 05/24/2020 FINDINGS: Single view of the chest shows a normal sized cardiomediastinal silhouette. Scattered airsp vincent opacities are seen in bilateral lower lobes. The bones are unremarkable. IMPRESSION: Bilateral lower lobe infiltrates
[2020-05-27] MEDS: Labetalol 100 MG TAB PO SCH ×2 (07:59→20:13)
[2020-05-27] MEDS: Dexamethasone 4 mg/ml Vial SLOW IVP SCH (09:06)
[2020-05-27] MEDS: Cepastat Lozenges 1 LOZ PO PRN (09:06)
--- NOTE | 2020-05-27 12:38 | PDOC.PP ---
Post Progress Note Post Day #: 2 Subjective: Visit conducted using [employer] tele[employer] services. S: feeling better than yesterday, she had her O2 off during our visit, she said she has just taken it off to void. Post op she is doing well, voiding, pain is controlled w NSAIDS, bleeding/lochia is minimal. She is ambulating and voiding well. In terms of C19 she said she feels better than she yesterday, her throat is no longer sore and it is not painful to swallow. She denies having a cough. She denies fever/chills or pain that is not associated w CS. PO intake tolerated: yes Flatus: yes Ambulation: yes Vital Signs (12 hours) Pulse BP Pulse Ox 05/27/20 07:59 93 122/69 05/27/20 04:00 94 L Weight Weight 175 lb BPs reviewed overnight at 130-140s/80s - Physical Examination General: NAD Respiratory: non-labored breathing (speaking full sentences) Neurological: no gross focal deficits Psychiatric: A&Ox3, normal affect Result Diagrams: 05/27/20 05:57 05/27/20 05:57 Additional Labs: Post Labs Blood Type O POSITIVE 05/24/20 17:29 Hep Bs Antigen Non-Reactive S/CO (NonReactive) 05/24/20 19:39 (1) COVID-19 Code(s): U07.1 - COVID-19 Status: Acute (2) delivery delivered Code(s): O82 - ENCOUNTER FOR DELIVERY WITHOUT INDICATION Status: Acute (3) labor in third trimester Code(s): O60.03 - LABOR WITHOUT DELIVERY, THIRD TRIMESTER Status: Acute (4) Severe pre-eclampsia Code(s): O14.10 - SEVERE PRE-ECLAMPSIA, UNSPECIFIED TRIMESTER Status: Acute (5) Viral pneumonia Code(s): J12.9 - VIRAL PNEUMONIA, UNSPECIFIED Status: Acute - Assessment/Plan POD2 (yesterday error, was POD1) -POD 2 CS, post op goals met, baby doing well in NICU per nurse report -severe preeclampisa w BP to mild range w labetalol 100mg BID, plan to continue , will titrate up to 200mg if severe range BP indicated medication change -[id number] well yesterday but with a late night set back, back from off O2 to 5L, currently weaned down to 2L @ 98% with plan to trial off again. Pt with plan to transfer to medical floor later today. She did complete plasma and was started on remdesivir yesterday, on oral steroids as well. Family medicine team managing viral pneumonia at this time.
[2020-05-27] MEDS: Azithromycin 500 MG in Sodium Chloride 0.9% 250 ML 250 ML IVPB SCH (14:20)
[2020-05-27] MEDS: NS w/ Oxytocin 10 units 500 ML IV SCH (16:02)
[2020-05-27] MEDS: REMDESIVIR (EUA) 100 MG in Sodium Chloride 0.9% 250 ML 230 ML IV SCH (16:12)
[2020-05-27] MEDS: Enoxaparin Sodium 40 MG/0.4 ML SYRINGE SC SCH (18:11)
[2020-05-27] MEDS ORDERED: hydrALAZINE 20 MG/ML VIAL SLOW IVP PRN (20:02)
[2020-05-28] MEDS: Albuterol 200 PUFF (6.7GM INHALER) INH SCH ×6 (01:10→21:20)
[2020-05-28 06:18] LABS: ALT (SGPT) 22 U/L (8-55); AST (SGOT) 55 U/L (5-34); Albumin 2.4 g/dL (3.5-5.0); Alkaline Phosphatase 208 U/L (40-110); Anion Gap 12 mmol/L (10-20); BUN (Urea Nitrogen) 14 mg/dL (7.0-18.7); Bilirubin, Total 0.3 mg/dL (0.2-1.2); Calc. Creatinine Clearance 178 mL/min (70-130); Calcium 7.5 mg/dL (7.8-10.44); Carbon Dioxide 19 mmol/L (22-29); Chloride 108 mmol/L (98-107); Estimated GFR-MDRD Greater than 90; Globulin 2.8 g/dL (2.4-3.5); Glucose 89 mg/dL (70-105); Protein, Total 5.2 g/dL (6.0-8.3); Sodium 135 mmol/L (136-145)
[2020-05-28 06:25] LABS: Band 5 % (5-11); Hemoglobin 9.6 g/dL (12.0-16.0); Lymphocytes 9 % (21-51); MDiff Complete? YES; Mean Corpuscular HGB CONC 31.6 g/dL (32.0-36.0); Mean Corpuscular Hemoglobin 28.6 pg (27.0-31.0); Mean Corpuscular Volume 90.7 fL (78.0-98.0); Mean Platelet Volume 9.1 fL (7.4-10.4); Metamyelocyte 2 % (0-0); Monocytes 3 % (0-10); Myelocyte 2 % (0-0); Neutrophil 79 % (42-75); Nucleated RBC 4 % (0); Platelet Count 227 thou/uL (130-400); RBC Distribution Width 14.8 % (11.5-14.5); Red Blood Cell (RBC) Count 3.35 mill/uL (4.20-5.40); White Blood Cell (WBC) Count 15.2 thou/uL (4.8-10.8)
--- NOTE | 2020-05-28 06:47 | PDOC.FM ---
- Subjective Subjective: Pt states she feels better today than yesterday. Feels her energy level is better as well and feels less short of breath. Did have increased O2 requirement again overnight. Denies any sx associated with her . - Objective Vital Signs & Weight: Vital Signs (12 hours) Temp Pulse Resp BP BP Pulse Ox 05/28/20 05:05 100.0 F H 103 H 20 134/67 94 L 05/28/20 00:00 100.1 F H 102 H 20 139/65 96 05/27/20 21:10 168/88 H 05/27/20 20:13 88 182/91 H 05/27/20 20:11 88 182/91 H 05/27/20 19:50 180/94 H 05/27/20 19:35 99.7 F H 88 20 182/91 H 95 Weight Weight 79.379 kg I&O: 05/26/20 05/27/20 05/28/20 06:59 06:59 06:59 Intake Total 0 490 Output Total 85 Balance -85 490 Result Diagrams: 05/28/20 05:38 05/28/20 05:39 Phys Exam - Physical Examination Constitutional: NAD HEENT: moist MMs Neck: full ROM Scattered rhonci, tachypnea Cardiovascular: RRR, no significant murmur Gastrointestinal: soft Incision CDI Musculoskeletal: no edema Neurological: non-focal Psychiatric: normal affect, A&O x 3 Skin: no rash, cap refill <2 seconds Dx/Plan (1) COVID-19 Code(s): U07.1 - COVID-19 Status: Acute (2) delivery delivered Code(s): O82 - ENCOUNTER FOR DELIVERY WITHOUT INDICATION Status: Acute (3) Placenta abruption, delivered, current hospitalization Code(s): O45.90 - PREMATURE SEPARATION OF PLACENTA, UNSP, UNSP TRIMESTER Status: Acute (4) labor in third trimester Code(s): O60.03 - LABOR WITHOUT DELIVERY, THIRD TRIMESTER Status: Acute (5) Severe pre-eclampsia Code(s): O14.10 - SEVERE PRE-ECLAMPSIA, UNSPECIFIED TRIMESTER Status: Acute (6) Viral pneumonia Code(s): J12.9 - VIRAL PNEUMONIA, UNSPECIFIED Status: Acute - Plan Plan: COVID PNA - again required elevated supplemental O2 levels overnight, on 5.5L satting 94% per morning vitals - approved for remdesivir - received convalescent plasma 3 days ago - azithro to cover for possible underlying bacterial pna, last dose today - albuterol HFA and lozenges for sore throat Pre E - Managed by primary Dr. Boggs - 's WNL - PRN hydralazine and titrating labetalol S/p - PPROM and placental abruption - POD #3 - Progressing normally from post operative/ perspective Alen Lucas - PGY2
[2020-05-28] MEDS: Labetalol 100 MG TAB PO SCH ×2 (08:58→20:52)
[2020-05-28] MEDS: Dexamethasone 4 mg/ml Vial SLOW IVP SCH (08:59)
[2020-05-28] MEDS: Azithromycin 500 MG in Sodium Chloride 0.9% 250 ML 250 ML IVPB SCH (11:59)
[2020-05-28] MEDS ORDERED: Sodium Chloride 0.9% 10 ML ONE (12:00)
[2020-05-28] MEDS: REMDESIVIR (EUA) 100 MG in Sodium Chloride 0.9% 250 ML 230 ML IV SCH (15:22)
[2020-05-28] MEDS: Enoxaparin Sodium 40 MG/0.4 ML SYRINGE SC SCH (17:02)
[2020-05-28] MEDS: hydrALAZINE 20 MG/ML VIAL SLOW IVP PRN (17:17)
--- NOTE | 2020-05-28 17:44 | PRG ---
DATE OF SERVICE: 05/28/2020 This was conducted using telemedicine at approximately 7:45 a.m., but this is a delayed dictation due to [employer] malfunction. SUBJECTIVE: Ms. Tamara Nunez is feeling better today. She reports no cough, no sore throat, and no fever or chills. She reports no abnormal vaginal bleeding and pain that is controlled with oral medication. She endorses shortness of breath when ambulating from her bed to the restroom. She is pumping and notes a minimal breast milk at this time, but has no breast concerns. OBJECTIVE: VITAL SIGNS: Within normal limits with the exception of her most recent O2 saturation at 95% on 2 L of nasal cannula. Her blood pressures have been in the normal range throughout the day and her most recent in the 130s/70s. She remains afebrile. GENERAL: No acute distress. Alert and oriented. Answers questions appropriately. LUNGS: Nonlabored breathing. Speaking in full sentences. ABDOMEN: No reported distention or incisional concerns. Incision is reportedly clean, dry, intact per nursing notes. PSYCHIATRIC: Affect, pleasant and appropriate. LABORATORY DATA: Most recent labs not able to review and report based on the [employer] capabilities. ASSESSMENT AND PLAN: Ms. Tamara Nunez is postoperative day 4, status post a primary section for nonreassuring heart tones and placental abruption at 34 weeks in labor. 1. Doing well postoperatively with postoperative goals met and pain controlled. 2. Severe preeclampsia with blood pressures well controlled with labetalol 200 mg b.i.d. 3. COVID-19, the patient continues to require between 2 and 5 L of oxygen by nasal cannula throughout the day with her highest oxygen requirement noted during times of ambulation and later in the evening. She is currently on oral dexamethasone, prophylactic Lovenox daily, oral remdesivir, and albuterol inhaler as needed. While her condition does not appear to be worsening, her improvements have been slow. Family Medicine recommendations and management of her respiratory viral pneumonia have been appreciated. Job ID: [id number]
[2020-05-28] MEDS: NS w/ Oxytocin 10 units 500 ML IV SCH (22:12)
[2020-05-29] MEDS: Albuterol 200 PUFF (6.7GM INHALER) INH SCH ×5 (01:24→17:30)
[2020-05-29] MEDS: hydrOXYzine 25 MG TAB PO PRN ×3 (01:24→20:29)
[2020-05-29] MEDS: Cepastat Lozenges 1 LOZ PO PRN ×4 (01:49→20:29)
[2020-05-29] MEDS: NS w/ Oxytocin 10 units 500 ML IV SCH (03:56)
[2020-05-29 05:52] LABS: Actual Bicarbonate (HCO3a) 16.3 mEq/L (22-28); Analyzer IN Cardio OR; Base Excess (BEa) -5.4 mEq/L (-2.0 to +3.0); Calcium, Ionized (arterial) 1.14 mmol/L (1.12-1.30); Carboxyhemoglobin (COHb) 0.2 gm% (0.0-3.0); Hemoglobin (Hb) 10.6 g/dL (12.0-16.0); Potassium - ABG Lab 4.13 mmol/L (3.70-5.30); pH, Arterial 7.49 (7.35-7.45)
[2020-05-29 05:53] LABS: CO2 Tension 21.7 mmHg (35.0-45.0)
[2020-05-29 05:54] LABS: O2 Tension (PaO2), arterial 52.4 mmHg (80.0-100.0)
[2020-05-29 05:55] LABS: ALV-art Gradient 205.675 (0-20)
--- NOTE | 2020-05-29 06:46 | PDOC.FM ---
- Subjective Subjective: Overnight required HFNC. Reports she feels a little better but also does not like the pressure of the air in her nose. Denies fever. Reports she misses her baby and would like to see more photos of him today. Would like to participate in the Priority study. - Objective MAR Reviewed: Yes Vital Signs & Weight: Vital Signs (12 hours) Temp Pulse Resp BP BP Pulse Ox 05/29/20 05:45 98.0 F 82 26 H 146/83 H 96 05/29/20 04:00 93 L 05/29/20 00:10 151/87 H 05/29/20 00:00 98.0 F 72 24 H 100 05/28/20 23:55 171/96 H 05/28/20 21:48 156/87 H 05/28/20 21:30 175/95 H 05/28/20 21:15 98.0 F 84 22 H 164/92 H 91 L 05/28/20 20:52 84 134/86 Weight Weight 79.379 kg I&O: 05/27/20 05/28/20 05/29/20 06:59 06:59 06:59 Intake Total 490 Balance 490 Result Diagrams: 05/29/20 06:19 05/29/20 06:19 Phys Exam - Physical Examination HFNC in placed. Tachypneic but comfortable Neck: supple bibasilar crackles Cardiovascular: RRR, no significant murmur Gastrointestinal: soft incision healing well, SubQ suture closure Musculoskeletal: no edema Neurological: moves all 4 limbs Psychiatric: normal affect, A&O x 3 Skin: no rash Dx/Plan - Plan Plan: Acute hypoxic Respiratory failure 2/2 COVID PNA - Overnight moved up to HFNC. SpO2 96% this AM - s/p Azithro to cover for coinfection with bacterial pna. Convalescent plasma on 05/25 - Continue Remdesiver - Albuterol HFA and lozenges for sore throat - Continue to trend daily labs including D-Dimer Pre E - Managed by primary Dr. Boggs - BP's severe range overnight. - PRN hydralazine and titrating labetalol s/p rLTCS - PPROM and placental abruption - POD #4 DVT ppx: Lovenox Addendum - Attending - Attending Attestation Date/Time: 05/29/20 1144 I personally evaluated the patient and discussed the management with Dr. Lord. I agree with the History, Examination, Assessment and Plan documented above with any addition or exceptions noted below. Started on HFNC last night due to increased work of breathing and decreased PO2. Will repeat ABG and CXR tomorrow. No concern for impending respiratory collapse at this time. Encouraged incentive spirometry today as it is difficulty for her to ambulate with the HFNC. Chair TID. Continue decadron and remdesivir.
[2020-05-29 06:52] LABS: ALT (SGPT) 16 U/L (8-55); AST (SGOT) 34 U/L (5-34); Albumin 2.4 g/dL (3.5-5.0); Alkaline Phosphatase 198 U/L (40-110); Anion Gap 12 mmol/L (10-20); BUN (Urea Nitrogen) 12 mg/dL (7.0-18.7); Bilirubin, Total 0.3 mg/dL (0.2-1.2); Calc. Creatinine Clearance 202 mL/min (70-130); Carbon Dioxide 19 mmol/L (22-29); Chloride 113 mmol/L (98-107); Estimated GFR-MDRD Greater than 90; Glucose 104 mg/dL (70-105); Potassium 4.2 mmol/L (3.5-5.1); Protein, Total 5.4 g/dL (6.0-8.3); Sodium 140 mmol/L (136-145)
[2020-05-29 06:54] LABS: Hemoglobin 9.7 g/dL (12.0-16.0); Mean Corpuscular HGB CONC 32.8 g/dL (32.0-36.0); Mean Corpuscular Hemoglobin 29.7 pg (27.0-31.0); Mean Corpuscular Volume 90.6 fL (78.0-98.0); Platelet Count 277 thou/uL (130-400); RBC Distribution Width 14.6 % (11.5-14.5); Red Blood Cell (RBC) Count 3.28 mill/uL (4.20-5.40); White Blood Cell (WBC) Count 14.3 thou/uL (4.8-10.8)
[2020-05-29] MEDS: Dexamethasone 4 mg/ml Vial SLOW IVP SCH (08:26)
[2020-05-29] MEDS: Labetalol 100 MG TAB PO SCH ×3 (08:27→20:28)
[2020-05-29 08:33] LABS: Band 2 % (5-11); Lymphocytes 17 % (21-51); MDiff Complete? YES; Monocytes 3 % (0-10); Neutrophil 78 % (42-75); Nucleated RBC 1 % (0)
[2020-05-29] MEDS: REMDESIVIR (EUA) 100 MG in Sodium Chloride 0.9% 250 ML 230 ML IV SCH (15:27)
[2020-05-29] MEDS: Enoxaparin Sodium 40 MG/0.4 ML SYRINGE SC SCH (17:30)
[2020-05-29] MEDS: Acetaminophen 500 MG TAB PO PRN (20:28)
[2020-05-30] MEDS: hydrALAZINE 20 MG/ML VIAL SLOW IVP PRN (00:40)
[2020-05-30] MEDS: Cepastat Lozenges 1 LOZ PO PRN ×2 (00:42→22:11)
[2020-05-30] MEDS: NS w/ Oxytocin 10 units 500 ML IV SCH ×2 (00:49→22:31)
[2020-05-30] MEDS: Albuterol 200 PUFF (6.7GM INHALER) INH SCH ×7 (00:50→21:36)
[2020-05-30 05:47] LABS: ALT (SGPT) 17 U/L (8-55); AST (SGOT) 30 U/L (5-34); Albumin 2.4 g/dL (3.5-5.0); Alkaline Phosphatase 197 U/L (40-110); Anion Gap 12 mmol/L (10-20); BUN (Urea Nitrogen) 14 mg/dL (7.0-18.7); Bilirubin, Total 0.3 mg/dL (0.2-1.2); Calc. Creatinine Clearance 206 mL/min (70-130); Calcium 7.8 mg/dL (7.8-10.44); Carbon Dioxide 18 mmol/L (22-29); Chloride 113 mmol/L (98-107); Estimated GFR-MDRD Greater than 90; Globulin 2.9 g/dL (2.4-3.5); Glucose 79 mg/dL (70-105); Potassium 4.1 mmol/L (3.5-5.1); Protein, Total 5.3 g/dL (6.0-8.3); Sodium 139 mmol/L (136-145)
--- NOTE | 2020-05-30 06:47 | PDOC.PP ---
Post Progress Note Post Day #: 5 Subjective: 30 y/o F post op pLTCS for nonreassuring FHT's PT is COVID-19 + Nurse reports no acute overnight events. She was moved to [facility] per admin request due to covid-19 pos status. she remains on HFNC @ 4 L on 40 FIO2. No desaturation episodes overnight. she desats when mobile. pain controlled. BP: had one pressure 0040 severe range. received 10 mg hydralazine and bp's lowered. PO intake tolerated: yes Ambulation: yes Vital Signs (12 hours) Temp Pulse Resp BP BP Pulse Ox 05/30/20 03:42 98.0 F 84 31 H 132/80 98 05/30/20 01:55 81 137/76 05/30/20 00:40 72 180/97 H 05/30/20 00:24 98.1 F 72 25 H 180/97 H 98 05/29/20 20:28 75 05/29/20 20:00 98.6 F 84 24 H 140/82 100 Weight Weight 79.379 kg - Physical Examination General: NAD Skin: CS incision dry & intact Result Diagrams: 05/29/20 06:19 05/30/20 04:44 Additional Labs: Post Labs Blood Type O POSITIVE 05/24/20 17:29 Hep Bs Antigen Non-Reactive S/CO (NonReactive) 05/24/20 19:39 - Assessment/Plan 1. post op pLTCS for nonreassuring FHT's and placental abruption @ 34 wga in labor - incision clean dry and intact per nurse. 2. COVID-19 - day 4 remdesivir - received convalescent plasma 05/25 - decadron day 5 - s/p azithro - on HFNC @ 4 L on 40 FIO2 - managed by service, following care recs. 3. Pre-E - TID labetalol - one sever range pressure overnight treated with 10 mg hydralazine. Care plan discussed with Dr. Rios who is in agreement with above stated plan. Addendum - Attending - Attending Attestation Date/Time: 05/30/20 2217 I personally evaluated the patient and discussed the management with Dr. Garcia. I agree with the History, Examination, Assessment and Plan documented above.
[2020-05-30 07:10] LABS: Actual Bicarbonate (HCO3a) 16.8 mEq/L (22-28); Base Excess (BEa) -5.8 mEq/L (-2.0 to +3.0); Calcium, Ionized (arterial) 1.19 mmol/L (1.12-1.30); Carboxyhemoglobin (COHb) 0.3 gm% (0.0-3.0); Hemoglobin (Hb) 11.9 g/dL (12.0-16.0); pH, Arterial 7.44 (7.35-7.45)
[2020-05-30 07:13] LABS: ALV-art Gradient 227.645 (0-20); CO2 Tension 25.1 mmHg (35.0-45.0); O2 Tension (PaO2), arterial 54.7 mmHg (80.0-100.0); Puncture Site RBRACH
--- NOTE | 2020-05-30 07:44 | PDOC.FM ---
- Subjective Subjective: Pain well controlled. Reports SOB improved from yesterday, she is getting used to the HFNC. Endorses cough. Denies diarrhea. She is attempting to pump but reports little to no milk production. - Objective MAR Reviewed: Yes Vital Signs & Weight: Vital Signs (12 hours) Temp Pulse Resp BP BP Pulse Ox 05/30/20 03:42 98.0 F 84 31 H 132/80 98 05/30/20 01:55 81 137/76 05/30/20 00:40 72 180/97 H 05/30/20 00:24 98.1 F 72 25 H 180/97 H 98 05/29/20 20:28 75 05/29/20 20:00 98.6 F 84 24 H 140/82 100 Weight Weight 79.379 kg I&O: 05/29/20 05/30/20 05/31/20 06:59 06:59 06:59 Intake Total 100.5 Balance 100.5 Result Diagrams: 05/30/20 04:44 05/30/20 04:44 Phys Exam - Physical Examination Constitutional: NAD HEENT: moist MMs Neck: supple Respiratory: no wheezing, clear to auscultation bilateral Cardiovascular: RRR, no significant murmur Gastrointestinal: soft Neurological: moves all 4 limbs Psychiatric: normal affect, A&O x 3 Skin: no rash Dx/Plan - Plan Plan: Acute hypoxic Respiratory failure 2/2 COVID PNA - Currently stable on HFNC. - s/p Azithro to cover for coinfection with bacterial pna. Convalescent plasma on 05/25 - Continue Remdesiver - Albuterol HFA and lozenges for sore throat - Continue to trend daily labs including D-Dimer Pre E - Managed by primary Dr. Boggs - BP severe range overnight. - PRN hydralazine and harvey labetalol s/p rLTCS - PPROM and placental abruption - POD #5 DVT ppx: Lovenox Addendum - Attending - Attending Attestation Date/Time: 05/30/20 1039 I personally evaluated the patient and discussed the management with Dr. Lord. I agree with the History, Examination, Assessment and Plan documented above with any addition or exceptions noted below. Minimal improvement in ABG with HFNC and she has had worsening tachypnea. Increased FIO2 to 50% and will monitor today. She had decreased CRP this morning. Encourage incentive spirometry to recruit alveoli. Finishes remdesivir today. Will hopefully be able to start weaning tomorrow. I anticipate she will need 2-3 more days in the hospital. BP management per REGISTERED NURSE POST PARTUM. [employer] Hand used during my exam.
[2020-05-30 08:44] LABS: Band 10 % (5-11); Lymphocytes 9 % (21-51); MDiff Complete? YES; Mean Corpuscular HGB CONC 32.3 g/dL (32.0-36.0); Mean Corpuscular Hemoglobin 30.1 pg (27.0-31.0); Mean Corpuscular Volume 93.1 fL (78.0-98.0); Mean Platelet Volume 8.6 fL (7.4-10.4); Metamyelocyte 3 % (0-0); Neutrophil 78 % (42-75); Nucleated RBC 1 % (0); Platelet Count 270 thou/uL (130-400); RBC Distribution Width 14.7 % (11.5-14.5); Red Blood Cell (RBC) Count 3.32 mill/uL (4.20-5.40); White Blood Cell (WBC) Count 13.1 thou/uL (4.8-10.8)
[2020-05-30] MEDS: Dexamethasone 4 mg/ml Vial SLOW IVP SCH (08:59)
[2020-05-30] MEDS: Labetalol 100 MG TAB PO SCH ×3 (08:59→21:36)
--- NOTE | 2020-05-30 12:07 | RAD ---
EXAM: Single view of the chest HISTORY: Covid pneumonia with hypoxia COMPARISON: 05/25/2020 FINDINGS: Single view of the chest shows a normal sized cardiomediastinal silhouette. Scattered multi focal opacities are seen in the lungs. The bones are unremarkable IMPRESSION: Multifocal infiltrates
[2020-05-30] MEDS: REMDESIVIR (EUA) 100 MG in Sodium Chloride 0.9% 250 ML 230 ML IV SCH (16:22)
[2020-05-31] MEDS: Albuterol 200 PUFF (6.7GM INHALER) INH SCH ×6 (00:11→19:55)
[2020-05-31 03:48] VITALS: BMI 31.4
[2020-05-31 05:48] LABS: Band 7 % (5-11); Hemoglobin 9.8 g/dL (12.0-16.0); Lymphocytes 12 % (21-51); MDiff Complete? YES; Mean Corpuscular HGB CONC 31.1 g/dL (32.0-36.0); Mean Corpuscular Hemoglobin 28.4 pg (27.0-31.0); Mean Corpuscular Volume 91.3 fL (78.0-98.0); Mean Platelet Volume 9.1 fL (7.4-10.4); Metamyelocyte 1 % (0-0); Monocytes 11 % (0-10); Neutrophil 68 % (42-75); Nucleated RBC 3 % (0); Platelet Count 187 thou/uL (130-400); Platelet Morphology Comment Appears Adequate; RBC Distribution Width 15.1 % (11.5-14.5); Reactive Lymphocytes 1 % (0-10); Red Blood Cell (RBC) Count 3.44 mill/uL (4.20-5.40); White Blood Cell (WBC) Count 12.6 thou/uL (4.8-10.8)
[2020-05-31 05:54] LABS: ALT (SGPT) 14 U/L (8-55); AST (SGOT) 24 U/L (5-34); Albumin 2.6 g/dL (3.5-5.0); Alkaline Phosphatase 200 U/L (40-110); Anion Gap 13 mmol/L (10-20); BUN (Urea Nitrogen) 16 mg/dL (7.0-18.7); Bilirubin, Total 0.4 mg/dL (0.2-1.2); Calc. Creatinine Clearance 209 mL/min (70-130); Calcium 7.9 mg/dL (7.8-10.44); Carbon Dioxide 16 mmol/L (22-29); Chloride 114 mmol/L (98-107); Estimated GFR-MDRD Greater than 90; Globulin 2.7 g/dL (2.4-3.5); Glucose 74 mg/dL (70-105); Protein, Total 5.3 g/dL (6.0-8.3); Sodium 139 mmol/L (136-145)
--- NOTE | 2020-05-31 06:59 | PDOC.FM ---
- Subjective Subjective: Pt reports feeling stable from a respiratory standpoint this morning. Does note that she is feeling quite depressed and lonely - seemed more hopeful after we discussed possibility of visiting or setting up video call with her baby. Continues to desat with ambulation. Tolerating [place] better now. - Objective Vital Signs & Weight: Vital Signs (12 hours) Temp Pulse Resp BP BP Pulse Ox 05/31/20 03:45 98.4 F 90 27 H 160/89 H 96 05/31/20 00:11 98.1 F 87 27 H 158/99 H 97 05/30/20 21:36 93 153/91 H 05/30/20 20:25 98.8 F 93 17 153/91 H 99 Weight Weight 83.506 kg I&O: 05/29/20 05/30/20 05/31/20 06:59 06:59 06:59 Intake Total 100.5 920 Output Total 1400 Balance 100.5 -480 Result Diagrams: 05/31/20 04:27 05/31/20 04:27 Phys Exam - Physical Examination Constitutional: NAD HEENT: sclera anicteric Coarse breath sounds in left lower and right middle thompson inspiration improved Cardiovascular: RRR, no significant murmur Musculoskeletal: no edema Neurological: non-focal, moves all 4 limbs Psychiatric: A&O x 3 Deviation from normal: Depressed Skin: no rash Dx/Plan (1) COVID-19 Code(s): U07.1 - COVID-19 Status: Acute (2) delivery delivered Code(s): O82 - ENCOUNTER FOR DELIVERY WITHOUT INDICATION Status: Acute (3) Placenta abruption, delivered, current hospitalization Code(s): O45.90 - PREMATURE SEPARATION OF PLACENTA, UNSP, UNSP TRIMESTER Status: Acute (4) labor in third trimester Code(s): O60.03 - LABOR WITHOUT DELIVERY, THIRD TRIMESTER Status: Acute (5) Severe pre-eclampsia Code(s): O14.10 - SEVERE PRE-ECLAMPSIA, UNSPECIFIED TRIMESTER Status: Acute (6) Viral pneumonia Code(s): J12.9 - VIRAL PNEUMONIA, UNSPECIFIED Status: Acute - Plan Plan: Acute hypoxic Respiratory failure 2/2 COVID PNA - Currently stable on HFNC @ FiO2 of 50% - s/p Azithro to cover for coinfection with bacterial pna. Convalescent plasma on 05/25 and full course of remdesiver - Albuterol HFA and lozenges for sore throat - Continue to trend daily labs including D-Dimer -D-dimer: >20, this represents a large increase over the past 2 days -Will initiate therapeutic lovenox dosing - Will discuss possibility of IL6 inhibitor with Dr. Yepez today Pre E - Managed by primary Dr. Boggs - BP severe range overnight, instructed nursing staff to give hydralazine IV when >=160 syst - PRN hydralazine and harvey labetalol now TID, will increase to 300mg s/p rLTCS - PPROM and placental abruption - POD #6 - Progressing normally DVT ppx: Lovenox Diet: Regular IV: SL Plan: Continue pulmonary monitoring and support. Pt per patient's days of illness I expect she would be leaving the peak of illness anytime now and hope her condition and O2 requirement will reflect this. Will continue to titrate FiO2 as needed to goal sats. Addendum - Attending - Attending Attestation Date/Time: 05/31/20 7503 I personally evaluated the patient and discussed the management with Dr. Lucas. I agree with the History, Examination, Assessment and Plan documented above with any addition or exceptions noted below. Increased labetalol to 300 mg TID today. if no improvement in BP will d/c and switched to procardia. Continue HFNC for resp support. ABG tomorrow to evaluated need for further titration. She is not day 9 of symptoms and based in change in D-dimer and CRP overnight she is likely entering the inflammatory stage of the illness. Restarted Th lovenox. Discussed with ID need for IL6 inhibitor but states we can hold off for now. continue steroids. From PP standpoint, she is progressing well but will defer to PROCESSING ASSOCIATE for further management of this. Consider CTA to evaluate for PE if she acutely decompensates or requires ET intubation.
[2020-05-31] MEDS: Dexamethasone 4 mg/ml Vial SLOW IVP SCH (07:56)
[2020-05-31] MEDS: Labetalol 100 MG TAB PO SCH ×4 (07:56→20:39)
[2020-05-31] MEDS: Enoxaparin Sodium 80 MG/0.8 ML SYRINGE SC SCH ×2 (08:02→20:39)
--- NOTE | 2020-05-31 08:58 | PRG ---
DATE OF SERVICE: 05/31/2020 SUBJECTIVE: The patient is postop day #10, status post a primary lower transverse section for non-reassuring heart tones. The patient's course has been complicated by COVID positive status with significant respiratory symptoms and is being managed by Family Medicine for these symptoms. She also had her course complicated by preeclampsia with severe features and has required labetalol 200 mg t.i.d. for blood pressure control. Over the last 24 hours, the patient has had primarily mild range pressures. She did have one pressure yesterday at 180/97 and this morning, she has had a pressure of 160/89. The patient reports that she is feeling a little better than she has in the past. She is anxious to get home and was asking if she could go home on oxygen. This encounter has been by phone and I did not perform a physical exam. VITAL SIGNS: However, most recent vital signs; blood pressure is 160/89, temperature 98.4, pulse of 90, respiratory rate of 27, 96% on 40 L of high-flow oxygen with FiO2 of 52. ASSESSMENT AND PLAN: The patient is a 30-year-old female who from OB standpoint no longer needs hospitalization for care. Her blood pressures have been predominantly within range. We will continue to observe while she is here to see if she needs any more adjustments to her blood pressure medication. Her respiratory symptoms are being managed by Family Medicine, for which she is on dexamethasone and albuterol and oxygen at this time. They will continue to provide her inpatient care and we appreciate the help. Job ID: [id number]
[2020-05-31] MEDS: Lactated Ringer's 1,000 ML IV SCH ×2 (09:56→18:06)
[2020-05-31] MEDS: Penicillin G Potassium 5 MILL.UNITS in Sodium Chloride 0.9% 100 ML IVPB SCH (10:15)
[2020-05-31] MEDS: hydrALAZINE 20 MG/ML VIAL SLOW IVP PRN (10:41)
[2020-05-31] MEDS: NS w/ Oxytocin 10 units 500 ML IV SCH (20:40)
[2020-05-31] MEDS ORDERED: NIFEdipine XL 30 MG TAB PO SCH (23:15)
[2020-06-01] MEDS: Albuterol 200 PUFF (6.7GM INHALER) INH SCH ×6 (00:08→20:45)
[2020-06-01] MEDS: Acetaminophen 500 MG TAB PO PRN (04:58)
[2020-06-01] MEDS: Cepastat Lozenges 1 LOZ PO PRN ×2 (04:58→16:30)
[2020-06-01] MEDS: Lactated Ringer's 1,000 ML IV SCH (05:16)
[2020-06-01 05:38] LABS: Band 14 % (5-11); Eosinophils 1 % (0-10); Hemoglobin 9.8 g/dL (12.0-16.0); Lymphocytes 15 % (21-51); MDiff Complete? YES; Mean Corpuscular HGB CONC 32.1 g/dL (32.0-36.0); Mean Corpuscular Hemoglobin 29.1 pg (27.0-31.0); Mean Corpuscular Volume 90.7 fL (78.0-98.0); Mean Platelet Volume 9.1 fL (7.4-10.4); Metamyelocyte 5 % (0-0); Monocytes 12 % (0-10); Myelocyte 4 % (0-0); Neutrophil 49 % (42-75); Nucleated RBC 3 % (0); Platelet Count 195 thou/uL (130-400); Platelet Morphology Comment Appears Adequate; Polychromasia SLIGHT = 2-3 cells (100X) (0-2/hpf); RBC Distribution Width 15.2 % (11.5-14.5); Red Blood Cell (RBC) Count 3.36 mill/uL (4.20-5.40); White Blood Cell (WBC) Count 12.9 thou/uL (4.8-10.8)
[2020-06-01 05:45] LABS: ALT (SGPT) 11 U/L (8-55); AST (SGOT) 21 U/L (5-34); Albumin 2.6 g/dL (3.5-5.0); Alkaline Phosphatase 185 U/L (40-110); Anion Gap 11 mmol/L (10-20); BUN (Urea Nitrogen) 17 mg/dL (7.0-18.7); Bilirubin, Total 0.5 mg/dL (0.2-1.2); Calc. Creatinine Clearance 210 mL/min (70-130); Calcium 8.2 mg/dL (7.8-10.44); Carbon Dioxide 19 mmol/L (22-29); Chloride 111 mmol/L (98-107); Estimated GFR-MDRD Greater than 90; Glucose 80 mg/dL (70-105); Potassium 4.1 mmol/L (3.5-5.1); Protein, Total 5.6 g/dL (6.0-8.3); Sodium 137 mmol/L (136-145)
--- NOTE | 2020-06-01 07:18 | PDOC.FM ---
- Subjective Subjective: Pt notes continued improvement today. States she does not feel at all short of breath while getting the high flow and laying in bed. Even notes that she is less SOB with moving around in bed. Pt has been orally hydrating better than she was yesterday. Has a lot of questions about DC plans as she is hopeful to see her soon. Discussed likelihood of her needing O2 while at home which she is agreeable to. - Objective Vital Signs & Weight: Vital Signs (12 hours) Temp Pulse Resp BP BP Pulse Ox 06/01/20 04:48 98.0 F 83 22 H 140/82 97 06/01/20 00:07 87 05/31/20 23:00 98.2 F 87 20 142/85 H 99 05/31/20 20:39 91 159/100 H 05/31/20 19:55 98.2 F 91 18 159/100 H 99 Weight Weight 80.921 kg I&O: 05/31/20 06/01/20 06/02/20 06:59 06:59 06:59 Intake Total 920 1454 Output Total 1400 1100 Balance -480 354 Result Diagrams: 06/01/20 04:50 06/01/20 04:50 Phys Exam - Physical Examination Constitutional: NAD HEENT: moist MMs Neck: full ROM Frictional lung sounds in bases, coarse throughout Cardiovascular: RRR Gastrointestinal: soft, non-tender Musculoskeletal: no edema Neurological: moves all 4 limbs Psychiatric: normal affect, A&O x 3 Dx/Plan (1) COVID-19 Code(s): U07.1 - COVID-19 Status: Acute (2) delivery delivered Code(s): O82 - ENCOUNTER FOR DELIVERY WITHOUT INDICATION Status: Acute (3) Placenta abruption, delivered, current hospitalization Code(s): O45.90 - PREMATURE SEPARATION OF PLACENTA, UNSP, UNSP TRIMESTER Status: Acute (4) labor in third trimester Code(s): O60.03 - LABOR WITHOUT DELIVERY, THIRD TRIMESTER Status: Acute (5) Severe pre-eclampsia Code(s): O14.10 - SEVERE PRE-ECLAMPSIA, UNSPECIFIED TRIMESTER Status: Acute (6) Viral pneumonia Code(s): J12.9 - VIRAL PNEUMONIA, UNSPECIFIED Status: Acute - Plan Plan: Acute hypoxic Respiratory failure 2/2 COVID PNA - Currently stable on HFNC rate of 40@ FiO2 of 50%, will attempt to wean down rate today -Sats have maintained >92%, however, pO2 yesterday was low at 52 - s/p Azithro to cover for coinfection with bacterial pna. Convalescent plasma on 05/25 and full course of remdesiver - Albuterol HFA and lozenges for sore throat - Continue to trend daily labs including D-Dimer -D-dimer: 12.46, improved from yesterday -Continue therapeutic lovenox - Discussed with Dr. Yepez yesterday, recommends holding off on IL6 inhibitor Pre E - PRN hydralazine and harvey labetalol 300mg TID - Added nicardipine last night for elevated pressures - Non severe range BP this morning s/p rLTCS - PPROM and placental abruption - POD #7 - Progressing normally DVT ppx: Lovenox - therapeutic Diet: Regular IV: SL Plan: Dimer has improved and pt has maintained elevated sats. Hopeful this is indicating that the trajectory of her disease course has now changed for the better. Will confirm improved saturation with ABG this morning. If it confirms improvement will attempt to wean flow rate of HFNC as tolerated. Addendum - Attending - Attending Attestation Date/Time: 06/01/20 1030 I personally evaluated the patient and discussed the management with Dr. Lucas. I agree with the History, Examination, Assessment and Plan documented above with any addition or exceptions noted below. ABG and clinical resp status improved. Will d/c HFNC and place back on 5L regular NC. If she does clinically well overnight,will attempt d/c tomorrow. D/ c labetalol and start procardia 60 mg QD for BP control. Arranging Home O2 today.
[2020-06-01] MEDS: Enoxaparin Sodium 80 MG/0.8 ML SYRINGE SC SCH ×2 (08:26→20:45)
[2020-06-01] MEDS: Dexamethasone 4 mg/ml Vial SLOW IVP SCH (08:26)
[2020-06-01] MEDS: Labetalol 100 MG TAB PO SCH (08:27)
[2020-06-01 08:54] LABS: Actual Bicarbonate (HCO3a) 17.6 mEq/L (22-28); Base Excess (BEa) -5.5 mEq/L (-2.0 to +3.0); CO2 Tension 26.9 mmHg (35.0-45.0); Calcium, Ionized (arterial) 1.18 mmol/L (1.12-1.30); Carboxyhemoglobin (COHb) 0.3 gm% (0.0-3.0); Hemoglobin (Hb) 10.4 g/dL (12.0-16.0); O2 Tension (PaO2), arterial 75.3 mmHg (80.0-100.0); Potassium - ABG Lab 3.83 mmol/L (3.70-5.30); pH, Arterial 7.43 (7.35-7.45)
[2020-06-01] MEDS ORDERED: NIFEdipine XL 30 MG TAB PO SCH ×2 (09:00→10:33)
[2020-06-01 09:06] LABS: ALV-art Gradient 240.445 (0-20); Puncture Site L.R.
[2020-06-01] MEDS ORDERED: NIFEdipine XL 60 MG TAB PO SCH (11:15)
[2020-06-01] MEDS: NS w/ Oxytocin 10 units 500 ML IV SCH (20:46)
[2020-06-02] MEDS: Albuterol 200 PUFF (6.7GM INHALER) INH SCH ×3 (00:35→08:14)
[2020-06-02] MEDS: Acetaminophen 500 MG TAB PO PRN (00:42)
[2020-06-02] MEDS: Cepastat Lozenges 1 LOZ PO PRN (01:04)
[2020-06-02 05:48] LABS: #Eosinphils 0.1 thou/uL (0.0-0.7); #Lymphocytes 1.9 thou/uL (1.20-3.40); #Monocytes 0.7 thou/uL (0.11-0.59); #Neutrophils 10.5 thou/uL (1.40-6.50); %Eosinophils 0.5 % (0.0-10.0); %Lymphocytes 14.6 % (21.0-51.0); Anisocytosis SLIGHT = 6-15 cells (100X) (0-5/hpf); Hemoglobin 11.3 g/dL (12.0-16.0); MDiff Complete? YES; Mean Corpuscular HGB CONC 31.8 g/dL (32.0-36.0); Mean Corpuscular Hemoglobin 28.9 pg (27.0-31.0); Mean Corpuscular Volume 90.8 fL (78.0-98.0); Mean Platelet Volume 9.3 fL (7.4-10.4); Platelet Count 204 thou/uL (130-400); RBC Distribution Width 15.6 % (11.5-14.5); White Blood Cell (WBC) Count 13.2 thou/uL (4.8-10.8)
[2020-06-02 05:50] LABS: ALT (SGPT) 12 U/L (8-55); AST (SGOT) 28 U/L (5-34); Albumin 2.9 g/dL (3.5-5.0); Alkaline Phosphatase 207 U/L (40-110); Anion Gap 15 mmol/L (10-20); BUN (Urea Nitrogen) 18 mg/dL (7.0-18.7); Bilirubin, Total 0.5 mg/dL (0.2-1.2); Calc. Creatinine Clearance 206 mL/min (70-130); Calcium 8.5 mg/dL (7.8-10.44); Carbon Dioxide 17 mmol/L (22-29); Chloride 110 mmol/L (98-107); Estimated GFR-MDRD Greater than 90; Globulin 3.6 g/dL (2.4-3.5); Glucose 77 mg/dL (70-105); Potassium 3.8 mmol/L (3.5-5.1); Protein, Total 6.5 g/dL (6.0-8.3); Sodium 138 mmol/L (136-145)
--- NOTE | 2020-06-02 07:08 | PDOC.FM ---
- Subjective Subjective: Pt notes continued improvement in her symptoms this morning. She denies feeling short of breath unless she is standing up or doing something. Discussed home O2 and managing her blood pressures. Pt is agreeable to following up with Dr. Boggs and will consider establishing with a PCP. Told her I would provide our clinics information as a resource. Denies any coughing, dyspnea at rest, or chest pain. - Objective Vital Signs & Weight: Vital Signs (12 hours) Temp Pulse Resp BP Pulse Ox 06/02/20 04:30 98.0 F 89 22 H 156/95 H 93 L 06/02/20 00:35 98.0 F 94 20 156/95 H 94 L 06/01/20 19:22 92 L 06/01/20 19:20 97.8 F 93 24 H 157/95 H 92 L Weight Weight 80.921 kg I&O: 06/01/20 06/02/20 06/03/20 06:59 06:59 06:59 Intake Total 1454 1110 Output Total 1100 1650 Balance 354 -540 Result Diagrams: 06/02/20 04:46 06/02/20 04:46 Phys Exam - Physical Examination Constitutional: NAD HEENT: moist MMs Neck: full ROM Coarse throughout with velcro sounding basilar crackles Mildly tachy Gastrointestinal: soft, non-tender Incision CDI Musculoskeletal: no edema Neurological: moves all 4 limbs Psychiatric: normal affect, A&O x 3 Dx/Plan (1) COVID-19 Code(s): U07.1 - COVID-19 Status: Acute (2) delivery delivered Code(s): O82 - ENCOUNTER FOR DELIVERY WITHOUT INDICATION Status: Acute (3) Placenta abruption, delivered, current hospitalization Code(s): O45.90 - PREMATURE SEPARATION OF PLACENTA, UNSP, UNSP TRIMESTER Status: Acute (4) labor in third trimester Code(s): O60.03 - LABOR WITHOUT DELIVERY, THIRD TRIMESTER Status: Acute (5) Severe pre-eclampsia Code(s): O14.10 - SEVERE PRE-ECLAMPSIA, UNSPECIFIED TRIMESTER Status: Acute (6) Viral pneumonia Code(s): J12.9 - VIRAL PNEUMONIA, UNSPECIFIED Status: Acute - Plan Plan: Acute hypoxic Respiratory failure 2/2 COVID PNA - Currently stable on * - pO2 yesterday on blood gas was 70, high flow then dc'd and have weaned since - s/p Azithro to cover for coinfection with bacterial pna. Convalescent plasma on 05/25 and full course of remdesiver - Albuterol HFA and lozenges for sore throat - Continue to trend daily labs including D-Dimer -D-dimer: 6, improved again from yesterday -Continue therapeutic lovenox Pre E - PRN hydralazine and nicardipine increased to 60mg daily today - Much better control yesterday after transition from labetalol to nicardipine s/p rLTCS - PPROM and placental abruption - POD #8 - Progressing normally DVT ppx: Lovenox - therapeutic Diet: Regular IV: SL Plan: Will continue to wean oxygen through the morning and assess patient's functional status. If she continues to do well will plan for possible DC later today with order for home O2. Addendum - Attending - Attending Attestation Date/Time: 06/02/20 1201 I personally evaluated the patient and discussed the management with Dr. Lucas. I agree with the History, Examination, Assessment and Plan documented above with any addition or exceptions noted below. arranging home O2 with CM. Resp status improved. BP better controlled on nifedipine. D/c home once home O2 arranged.
[2020-06-02] MEDS: Dexamethasone 4 mg/ml Vial SLOW IVP SCH (08:14)
[2020-06-02] MEDS: Enoxaparin Sodium 80 MG/0.8 ML SYRINGE SC SCH (08:15)
[2020-06-02] MEDS ORDERED: NIFEdipine XL 60 MG TAB PO SCH (09:00)
[2020-06-02 18:34] VITALS: BP 144/93; TEMP 98.1
--- NOTE | 2020-06-04 02:32 | DIS ---
DATE OF ADMISSION: 05/24/2020 DATE OF DISCHARGE: 06/02/2020 ADMISSION DIAGNOSES: 1. premature rupture of membranes and labor at 34 weeks. 2. Coronavirus with viral pneumonia. 3. Severe preeclampsia. DISCHARGE DIAGNOSES: 1. Status post primary section at 34 weeks for premature rupture of the membranes, acute placental abruption, and non-reassuring heart tones. 2. Status post acute phase of COVID-19 infection, requiring home oxygen for support. HOSPITAL COURSE: Ms. Tamara Nunez was admitted on 05/24/2020, at 34 weeks with labor and rupture of membranes, severe preeclampsia, and viral pneumonia, COVID-19 positive. Soon after admission, the patient was diagnosed with severe preeclampsia and placed on magnesium for seizure prophylaxis. She underwent a stat section during the second stage of labor for acute placental abruption and nonreassuring heart tones. The patient's postoperative course was complicated by sustained severe range blood pressures, which were managed with labetalol, and then later transitioned to Procardia 60 mg a day and complications of the viral pneumonia requiring oxygen. During the management of her COVID-19 infection, she received dexamethasone, remdesivir, and Lovenox. By hospital day #10, she was requiring nasal O2 during times of ambulation, but otherwise had done well postoperatively with her blood pressures maintained on Procardia 60 mg a day and postoperative goals from her primary met. The patient was discharged home on hospital day #10 with instructions for close followup in my office within the next week for blood pressure check. She was discharged home with home oxygen and Procardia XL 60 mg a day. The patient was discharged home in stable condition with a followup plan. Job ID: [id number]
== END 2020-06-02 19:33 | disposition home or self-care (01) | DRG 786 ==
LOC: ERS 14:16 → L&D/OP 17:32 → L&D 17:32 → L&D/OP 18:03 → L&D 19:10 → 3SW 05-27 13:47 → 2SW 05-30 00:30
PROVIDERS: ADMIT Obstetrics & Gynecology; ATTEND Obstetrics & Gynecology
PROC: 10D00Z1 Extraction of Products of Conception, Low, Open Approach (ICD-10-PCS; principal; 2020-05-25)
DX: O98.52 Other viral diseases complicating childbirth (principal); U07.1 COVID-19; J96.01 Acute respiratory failure with hypoxia; J12.89 Other viral pneumonia; O60.14X0 Preterm labor third trimester with preterm delivery third trimester, not applicable or unspecified; O45.93 Premature separation of placenta, unspecified, third trimester; O99.52 Diseases of the respiratory system complicating childbirth; Z3A.34 34 weeks gestation of pregnancy; Z37.0 Single live birth; O14.14 Severe pre-eclampsia complicating childbirth; O76 Abnormality in fetal heart rate and rhythm complicating labor and delivery
CPT/HCPCS: 36415; 36430; 51701; 71045; 80053; 81003; 81015; 82570; 82728; 82805; 83605; 83615; 83690; 83735; 84156; 85025; 85379; 85610; 85730; 86140; 86141; 86780; 86850; 86900; 86901; 87340; 87389; 88307; 93005; J0360; J0456; J0670; J0690; J0702; J1100; J1650; J1885; J2270; J2274; J2405; J2540; J2590; J3475; J3490; J7050

== ENCOUNTER 2020-06-04 15:39 | Inpatient (IN) | payer OTHER ==
[~2020-06-04 15:39] MED LIST changes: -Bupivacaine HCl 0.5%/Epinephrine 1:200,000/PF 30 ml Vial ONE; +Iopamidol-370 76% 500 ML 1 ML ONE
[2020-06-04] MEDS ORDERED: Dexamethasone 10 MG/ML VIAL ONE (16:26)
--- NOTE | 2020-06-04 16:35 | RAD ---
Exam: Chest one view HISTORY:Dyspnea Comparison: 05/27/2020, 05/30/2020 FINDINGS: Cardiac silhouette: Normal Aorta: Unremarkable Pulmonary vessels: Normal Costophrenic angles: Clear LUNGS: Persistent multi focal interstitial and alveolar opacities. Pneumothorax: None Osseous abnormalities: None IMPRESSION: No significant interval change.
[2020-06-04 16:38] LABS: #Eosinphils 0.1 thou/uL (0.0-0.7); #Lymphocytes 1.5 thou/uL (1.20-3.40); #Monocytes 0.5 thou/uL (0.11-0.59); #Neutrophils 14.9 thou/uL (1.40-6.50); %Basophils 0.1 % (0.0-1.0); %Eosinophils 0.5 % (0.0-10.0); %Lymphocytes 8.8 % (21.0-51.0); %Monocytes 2.8 % (0.0-10.0); %Neutrophils 87.9 % (42.0-75.0); Hemoglobin 11.6 g/dL (12.0-16.0); Mean Corpuscular HGB CONC 31.9 g/dL (32.0-36.0); Mean Corpuscular Hemoglobin 28.9 pg (27.0-31.0); Mean Corpuscular Volume 90.9 fL (78.0-98.0); Mean Platelet Volume 9.5 fL (7.4-10.4); Platelet Count 156 thou/uL (130-400); RBC Distribution Width 15.8 % (11.5-14.5); Red Blood Cell (RBC) Count 4.01 mill/uL (4.20-5.40)
[2020-06-04] MEDS ORDERED: Albuterol 200 PUFF (6.7GM INHALER) ONE (16:44)
[2020-06-04 16:56] LABS: ALT (SGPT) 13 U/L (8-55); AST (SGOT) 28 U/L (5-34); Albumin 3.1 g/dL (3.5-5.0); Alkaline Phosphatase 199 U/L (40-110); Anion Gap 13 mmol/L (10-20); BUN (Urea Nitrogen) 11 mg/dL (7.0-18.7); Bilirubin, Total 0.6 mg/dL (0.2-1.2); CK (CPK) 21 U/L (29-168); Calc. Creatinine Clearance 0 mL/min (70-130); Calcium 8.6 mg/dL (7.8-10.44); Carbon Dioxide 19 mmol/L (22-29); Chloride 111 mmol/L (98-107); Estimated GFR-MDRD Greater than 90; Globulin 3.8 g/dL (2.4-3.5); Glucose 94 mg/dL (70-105); Potassium 3.8 mmol/L (3.5-5.1); Protein, Total 6.9 g/dL (6.0-8.3); Sodium 139 mmol/L (136-145)
[2020-06-04] MEDS ORDERED: Azithromycin 500 MG VIAL ONE (17:05)
[2020-06-04] MEDS ORDERED: cefTRIAXone\\ROCEPHIN 2 GM VIAL ONE (17:05)
--- NOTE | 2020-06-04 18:01 | PDOC.FPRHP ---
- History of Present Illness Chief Complaint: SOB History of Present Illness: Ms Nunez is a 30yo who delivered a 34.6wks via pLTCS on 05/25/20 for placental abruption and had a prolonged hospitalization for acute hypoxic respiratory failure 2/2 COVID pneumonia. She was discharged on 06/02/20 home on 5L NC. CM arranged home O2. She did require HFNC during her hospitalization. She received Azithro for suspected bacterial coinfection, Remdesiver, convalescent plasma on 05/25. Dr Yepez was consulted. She was not a candidate for IL-6 inhibitor. During hospitalization she received Therapeutic lovenox. Plan was to discharge home on Eliquis however she was not taking this. During hospitalization she was also treated with Mg for preeclampsia. BPs were controlled on Nifedipine prior to discharge. She did not grain picker her rx for Nifidipine when she was discharged. BP noted to be elevated in the ED. Denies s/ s of preeclampsia. She is a patient of Dr Mosqueda. - Allergies/Adverse Reactions Allergies Allergy/AdvReac Type Severity Reaction Status Date / Time No Known Allergies Allergy Verified 06/04/20 21:36 - Home Medications Medication Instructions Recorded Confirmed Type NIFEdipine [Procardia XL] 60 mg PO DAILY 14 Days #14 tab 06/02/20 06/04/20 Rx - History PMHx: None PSHx: C/S on 05/25/2020 FHx: Noncontributory Social: Denies alcohol, tobacco, drugs - Review of Systems General: denies: fever/chills, fatigue Eyes: denies: eye pain, vision changes ENT: denies: nasal congestion, rhinorrhea Respiratory: reports: shortness of breath. denies: cough Cardiovascular: denies: chest pain, palpitation Gastrointestinal: denies: nausea, vomiting Genitourinary: denies: incontinence, dysuria Skin: denies: rashes, lesions Musculoskeletal: denies: pain, tenderness Neurological: denies: syncope, seizure Psychological: denies: anxiety, depression - Vital signs BP: 150/92 HR: 130 RR: 23 Tmax: 99.3 Pox: 96% on HF Wt: 84kg - Physical Exam Constitutional: awake, alert and oriented, well developed HEENT: EOMI, grossly normal vision, grossly normal hearing Neck: supple, trachea midline Chest: no-tender to palpation, no lesions Heart: normal S1/S2 -Heart: tachycardic Lungs: no respiratory distress -Lungs: crackles Abdomen: soft, non-tender Musculoskeletal: normal structure, normal tone Neurological: no focal deficit, normal sensation Skin: no rash/lesions, capillary refill <2 seconds Heme/Lymphatic: no unusual bruising or bleeding, no purpura Psychiatric: normal mood and affect, good judgment and insight FMR H&P: Results - Labs Result Diagrams: 06/05/20 05:25 06/05/20 05:25 Lab results: WBC 17.0 thou/uL (4.8-10.8) H 06/04/20 16:28 Hgb 11.6 g/dL (12.0-16.0) L 06/04/20 16:28 Hct 36.4 % (36.0-47.0) 06/04/20 16:28 MCV 90.9 fL (78.0-98.0) 06/04/20 16:28 Plt Count 156 thou/uL (130-400) 06/04/20 16:28 Neutrophils % 87.9 % (42.0-75.0) H 06/04/20 16:28 Sodium 139 mmol/L (136-145) 06/04/20 16:28 Potassium 3.8 mmol/L (3.5-5.1) 06/04/20 16:28 Chloride 111 mmol/L (98-107) H 06/04/20 16:28 Carbon Dioxide 19 mmol/L (22-29) L 06/04/20 16:28 BUN 11 mg/dL (7.0-18.7) 06/04/20 16:28 Creatinine 0.53 mg/dL (0.6-1.1) L 06/04/20 16:28 Glucose 94 mg/dL (70-105) 06/04/20 16:28 Lactic Acid 0.8 mmol/L (0.5-2.2) 06/04/20 16:28 Calcium 8.6 mg/dL (7.8-10.44) 06/04/20 16:28 Total Bilirubin 0.6 mg/dL (0.2-1.2) 06/04/20 16:28 AST 28 U/L (5-34) 06/04/20 16:28 ALT 13 U/L (8-55) 06/04/20 16:28 Alkaline Phosphatase 199 U/L (40-110) H 06/04/20 16:28 Creatine Kinase 21 U/L (29-168) L 06/04/20 16:28 CK-MB (CK-2) 1.0 ng/mL (0-6.6) 06/04/20 16:28 B-Natriuretic Peptide 17.2 pg/mL (0-100) 06/04/20 17:02 Serum Total Protein 6.9 g/dL (6.0-8.3) 06/04/20 16:28 Albumin 3.1 g/dL (3.5-5.0) L 06/04/20 16:28 - Radiology Interpretation Chest x-ray Status: report reviewed by me Additional comment: No significant interval change FMR H&P: A/P - Problem List (1) COVID-19 Current Visit: No Status: Acute Code(s): U07.1 - COVID-19 (2) Severe pre-eclampsia Current Visit: No Status: Acute Code(s): O14.10 - SEVERE PRE-ECLAMPSIA, UNSPECIFIED TRIMESTER (3) Viral pneumonia Current Visit: No Status: Acute Code(s): J12.9 - VIRAL PNEUMONIA, UNSPECIFIED - Plan Acute hypoxic respiratory failure 2/2 COVID pneumonia - Day 20 of symptoms - s/p Remdesivir, convalescent plasma on 06/04/20. Dr Yepez consulted last hospitalization, not candidate for IL-6 inh - Continue HFNC, will check ABG - Clear liquids until respiratory status stable - Received Azithro/Ceftriaxone in ED, recently treated will not continue. - Restart Dexamethasone daily. Albuterol q4hr WA and mucinex DM - Ordered Procal, D-dimer, LDH and CRP - Previously on ther lovenox, not on anticoagulation at home. Will order CTA to eval for PE as cause of acute decline. Restart Ther Lovenox. - Bld cx's pending - Admit to telemetry. Isolation precautions. PPD #10 - Preeclampsia PP requiring Mg. Sent home on Nifedipine but was not taking at home. Will restart. - Monitor for s/s of preE Code Status: FULL DVT ppx: Ther Lovenox PCP: Dr Boggs Dispo: >48hrs to manage resp status FMR H&P: Upper Level - Plan Date/Time: 06/04/20 3710 I, [], have evaluated this patient and agree with findings/plan as outlined by sales management intern resident. Pertinent changes/additions are listed here. Addendum - Attending - Attending Attestation Date/Time: 06/05/20 4643 I discussed the management with Dr. Goel on 06/04/2020 I agree with the History, Examination, Assessment and Plan documented above with any addition or exceptions noted below.
[2020-06-04 19:58] LABS: Pregnancy Test - Urine (BHCG) POSITIVE (Negative); Pregu Control Background? CLEAR/WHITE (CLR/WHITE); Pregu Control Bar Appear? YES (CONTROL BAR); Specific Gravity 1.021 (1.002-1.036)
[2020-06-04] MEDS ORDERED: Sodium Chloride 0.9% 1,000 ML IV SCH (20:23)
[2020-06-04] MEDS ORDERED: Ondansetron ODT 4 MG TAB PO PRN (20:35)
[2020-06-04] MEDS ORDERED: Enoxaparin Sodium 80 MG/0.8 ML SYRINGE SC SCH (21:00)
[2020-06-04 21:06] LABS: Base Excess (BEa) -5.7 mEq/L (-2.0 to +3.0); Calcium, Ionized (arterial) 1.17 mmol/L (1.12-1.30); Carboxyhemoglobin (COHb) 0.1 gm% (0.0-3.0); Hemoglobin (Hb) 11.8 g/dL (12.0-16.0); O2 Tension (PaO2), arterial 68.9 mmHg (80.0-100.0); Potassium - ABG Lab 4.07 mmol/L (3.70-5.30); pH, Arterial 7.44 (7.35-7.45)
[2020-06-04 21:19] LABS: Troponin I 0.061 ng/mL (< 0.028)
[2020-06-04 21:20] LABS: CO2 Tension 25.6 mmHg (35.0-45.0)
[2020-06-04 21:21] LABS: Puncture Site LRA
[2020-06-04] MEDS: guaiFENesin ER 600 MG TAB PO SCH (21:51)
[2020-06-04] MEDS: Enoxaparin Sodium 80 MG/0.8 ML SYRINGE SC SCH ×2 (21:51→22:41)
--- NOTE | 2020-06-04 22:34 | CT ---
CTA CHEST WITH CONTRAST: Date: 06/04/2020 Axial tomograms obtained following angio protocol with multiplanar reconstruction and 3D postprocessi ng. INDICATION: Increasing dyspnea. COVID pneumonia. FINDINGS: Pulmonary arteries show adequate opacification. Bilateral pulmonary emboli are demonstrated. Small emboli are seen in the right intralobular pulmonar y artery and into right lower lobe branches. Small emboli are seen in small branching left upper lobe pulmonary arteries and in the left intralobular pulmonary artery with emboli into several branches o f left lower lobe pulmonary arteries. Lung thompson show diffuse bilateral ground-glass infiltrates. There is more dense consolidation seen p osteriorly in both lungs. IMPRESSION: 1. Bilateral pulmonary emboli. 2. Diffuse bilateral pulmonary infiltrates. Ground-glass infiltrates are seen throughout lobes of karthik th lungs. Areas of more dense consolidation seen in the posterior mid lung thompson. Findings relayed to patient's nurse on . CODE CR. POS: ALBERT
[2020-06-05] MEDS: Albuterol 200 PUFF (6.7GM INHALER) INH SCH ×4 (05:34→20:33)
[2020-06-05 05:40] LABS: Platelet Count 142 thou/uL (130-400)
[2020-06-05 05:46] LABS: #Lymphocytes 1.6 thou/uL (1.20-3.40); #Monocytes 0.2 thou/uL (0.11-0.59); #Neutrophils 9.8 thou/uL (1.40-6.50); %Eosinophils 0.3 % (0.0-10.0); %Lymphocytes 13.4 % (21.0-51.0); %Neutrophils 84.2 % (42.0-75.0); Hemoglobin 9.8 g/dL (12.0-16.0); Mean Corpuscular HGB CONC 30.3 g/dL (32.0-36.0); Mean Corpuscular Hemoglobin 27.6 pg (27.0-31.0); Mean Corpuscular Volume 91.1 fL (78.0-98.0); Mean Platelet Volume 9.6 fL (7.4-10.4); Platelet Count 147 thou/uL (130-400); RBC Distribution Width 15.8 % (11.5-14.5); Red Blood Cell (RBC) Count 3.55 mill/uL (4.20-5.40); White Blood Cell (WBC) Count 11.6 thou/uL (4.8-10.8)
[2020-06-05 06:12] LABS: ALT (SGPT) 12 U/L (8-55); AST (SGOT) 21 U/L (5-34); Albumin 2.8 g/dL (3.5-5.0); Alkaline Phosphatase 163 U/L (40-110); Anion Gap 11 mmol/L (10-20); BUN (Urea Nitrogen) 13 mg/dL (7.0-18.7); Bilirubin, Total 0.5 mg/dL (0.2-1.2); Calc. Creatinine Clearance 200 mL/min (70-130); Calcium 8.4 mg/dL (7.8-10.44); Carbon Dioxide 19 mmol/L (22-29); Chloride 111 mmol/L (98-107); Estimated GFR-MDRD Greater than 90; Globulin 3.4 g/dL (2.4-3.5); Glucose 102 mg/dL (70-105); Potassium 4.1 mmol/L (3.5-5.1); Protein, Total 6.2 g/dL (6.0-8.3); Sodium 137 mmol/L (136-145)
--- NOTE | 2020-06-05 06:49 | PDOC.FM ---
- Subjective Subjective: Mrs. Nunez is sitting up in bed, comfortable this monring. Sherley denies any cough and feels that her SOB has improved. Discussed PE diagnosis and answered questions. Denies headache, vision changes, edema, RUQ pain. - Objective Vital Signs & Weight: Vital Signs (12 hours) Temp Pulse Resp BP Pulse Ox 06/05/20 03:23 99.0 F 102 H 24 H 130/77 98 06/04/20 23:15 98.4 F 117 H 24 H 131/82 96 06/04/20 20:07 98.7 F 124 H 28 H 134/81 94 L Weight Weight 78.698 kg I&O: 06/03/20 06/04/20 06/05/20 06:59 06:59 06:59 Intake Total 940 Output Total 650 Balance 290 Result Diagrams: 06/05/20 05:25 06/05/20 05:25 Phys Exam - Physical Examination Constitutional: NAD normal effort, on HFNC Musculoskeletal: no edema Neurological: non-focal, moves all 4 limbs Psychiatric: normal affect Skin: normal turgor Dx/Plan - Plan Plan: Acute hypoxic respiratory failure 2/2 bilateral PE, recent COVID pneumonia - Day 21 of COVID symptoms - CTA with multiple bilateral PEs and ground glass opacities - s/p Remdesivir, convalescent plasma on 06/04/20. Dr Yepez consulted last hospitalization, not candidate for IL-6 inh - Continue HFNC, RT actively titrating - Received Azithro/Ceftriaxone in ED, recently completed abc course with previous hospitalization, will not continue. - On dexamethasone daily. Albuterol q4hr WA and mucinex DM - On therapeutic lovenox, will transition to eliquis prior to discharge - Bld cx's pending PPD #11 - Preeclampsia PP requiring Mg. Sent home on Nifedipine but was not taking at home. Will restart. - Monitor for s/s of preE Code Status: FULL DVT ppx: Ther Lovenox PCP: Dr Boggs Dispo: Continue monitoring respiratory status and wean HFNC as tolerated. She does have NC already set up at home. Will need anticoagulation for 3 months at time of discharge. Addendum - Attending - Attending Attestation Date/Time: 06/05/20 1119 I personally evaluated the patient and discussed the management with Dr. Beltre I agree with the History, Examination, Assessment and Plan documented above with any addition or exceptions noted below - 30 yo female POD#11 from emergent ; delivery complicated by COVID pneumonia and prolonged course due to acute hypoxic respiratory failure from COVID. Was treated with convalescent plasma, dexamethasone and remdesivir. Patient was discharged on with home O2 and improved symptoms. Patient returned lat night with complaint of increased SOB. PMH/PSH/Meds/SH reviewed and agree with resident's documentation. Afebrile VSS. Exam repeated by me and agree with resident's findings. Labs: WBC=17.0, H/H=11.6/36.4, Yir=550, Pk=274, K=4.1, No=143, CO2=19 , BUN/Cr=13/0.51, CGC=895, D-dimer=8.63, trop I 0.061 -> 0.050, CRP=10.82, ABG= 7.44/26/69/17 93% CTA- b/l pulmonary emboli and ground glass opacities A/P: Acute hypoxic respiratory failure secondary to PE and COVID- started on lovenox and high flow O2. Titrate O2 to keep sats>94%. Will transition to eliquis for home. 2) HTN- restarted on nifedipine.
[2020-06-05] MEDS ORDERED: Albuterol Sulfate 1.25 MG/3 ML NEB NEB SCH (07:00)
[2020-06-05] MEDS: Enoxaparin Sodium 80 MG/0.8 ML SYRINGE SC SCH ×2 (08:53→20:34)
[2020-06-05] MEDS: NIFEdipine XL 60 MG TAB PO SCH (08:53)
[2020-06-05] MEDS: guaiFENesin ER 600 MG TAB PO SCH ×2 (08:54→20:34)
[2020-06-05] MEDS: Dexamethasone 4 mg/ml Vial SLOW IVP SCH (08:54)
[2020-06-05] MEDS: hydrOXYzine 25 MG TAB PO PRN (20:34)
[2020-06-06] MEDS: Albuterol 200 PUFF (6.7GM INHALER) INH SCH ×4 (05:15→20:16)
--- NOTE | 2020-06-06 06:34 | PDOC.FM ---
- Subjective Subjective: Mrs. Nunez reports continued SOB without much improvement. She is sitting up in bed with HFNC and appears comfortable. No change in respiratory status since yesterday. Endorses SOB particularly with any activity. Feels mucinex has helped her the most. - Objective Vital Signs & Weight: Vital Signs (12 hours) Temp Pulse Resp BP Pulse Ox 06/06/20 02:43 98.2 F 87 25 H 119/71 100 06/05/20 23:35 98.2 F 97 24 H 130/69 99 06/05/20 20:00 98.9 F 104 H 22 H 134/76 98 Weight Weight 78.698 kg I&O: 06/04/20 06/05/20 06/06/20 06:59 06:59 06:59 Intake Total 940 890 Output Total 650 2100 Balance 290 -1210 Result Diagrams: 06/05/20 05:25 06/05/20 05:25 Phys Exam - Physical Examination Constitutional: NAD Respiratory: no wheezing, no rhonchi, clear to auscultation bilateral Cardiovascular: RRR, no significant murmur Gastrointestinal: soft Musculoskeletal: no edema Neurological: non-focal Psychiatric: normal affect Skin: normal turgor Dx/Plan - Plan Plan: 30 yo F admitted for respiratory support for bilateral PEs after being recently discharged s/p and prolonged course d/t covid pneumonia. Acute hypoxic respiratory failure 2/2 bilateral PE, recent COVID pneumonia - Day 22 of COVID symptoms, s/p Remdesivir, convalescent plasma on 06/04/20. Dr Yepez consulted last hospitalization, not candidate for IL-6 inh. On dexamethasone daily. Otherwise, supportive care. - She does have NC already set up at home. - CTA with multiple bilateral PEs and ground glass opacities - Continue HFNC, RT actively titrating - Received Azithro/Ceftriaxone in ED, recently completed azithormycin course with previous hospitalization, will not continue. - Albuterol q4hr WA and mucinex DM. Bld cx's pending, NGTD. - Transition from therapeutic lovenox to eliquis today. Will need 10mg x7 days then decrease to 5mg on 06/13 to continue for 3 months. PP pre-E - s/p magnesium. Was discharged on nifedipine, continued - BP well controlled this admission PPD #12 Code Status: FULL PCP: Dr Boggs Dispo: Continue monitoring respiratory status and wean HFNC as tolerated. Respiratory status essentially unchanged since yesterday. Continue supportive care. Addendum - Attending - Attending Attestation Date/Time: 06/06/20 1992 I personally evaluated the patient and discussed the management with Dr. Beltre I agree with the History, Examination, Assessment and Plan documented above with any addition or exceptions noted below- Patient c/o continued SOB. Able to talk in full sentences. Afebrile VSS A/P: 1) Acute hypoxic resp failure secondary to b/l PE and COVID 19- continue anticoagulation; transitioned to eliquis today. Wean O2 as tolerated. 2) COVID - completed course of plasma and remdesivir during last hospitalization. Continue supportive care. 3) HTN - well controlled with current meds.
[2020-06-06] MEDS: NIFEdipine XL 60 MG TAB PO SCH (07:45)
[2020-06-06] MEDS: guaiFENesin ER 600 MG TAB PO SCH ×2 (07:45→20:17)
[2020-06-06] MEDS: Apixaban 5 MG TAB PO SCH ×2 (07:45→20:17)
[2020-06-06] MEDS: Dexamethasone 4 mg/ml Vial SLOW IVP SCH (07:46)
[2020-06-06] MEDS: Benzonatate 100 MG CAP PO PRN (21:31)
[2020-06-06] MEDS: hydrOXYzine 25 MG TAB PO PRN (21:31)
--- NOTE | 2020-06-07 06:22 | PDOC.FM ---
- Subjective Subjective: Patient is doing well this morning. Reports her breathing has improved slightly while at rest, though continues to have difficulty breathing with movement. Discussed treatment plan with patient using bay stocker. Discussed the need for anticoagulation for the treatment of her pulmonary emboli. Discussed trying to wean the oxygen throughout the next several days. Discussed having patient work with PT to help improve mobility. Patient agreeable with plan of care. - Objective Vital Signs & Weight: Vital Signs (12 hours) Temp Pulse Resp BP Pulse Ox 06/07/20 04:39 90 L 06/07/20 03:17 98.0 F 80 24 H 143/90 H 99 06/07/20 00:25 73 06/06/20 20:00 98.3 F 97 25 H 134/72 100 Weight Weight 78.698 kg I&O: 06/05/20 06/06/20 06/07/20 06:59 06:59 06:59 Intake Total 911 662 9272 Output Total 650 2100 2650 Balance 290 -1210 -900 Result Diagrams: 06/05/20 05:25 06/05/20 05:25 Phys Exam - Physical Examination Constitutional: NAD HEENT: moist MMs, sclera anicteric Neck: supple, full ROM Respiratory: no wheezing, clear to auscultation bilateral Cardiovascular: RRR, no significant murmur Gastrointestinal: soft, no distention Musculoskeletal: no edema, pulses present Neurological: non-focal, moves all 4 limbs Psychiatric: normal affect, A&O x 3 Skin: no rash, normal turgor Dx/Plan (1) COVID-19 Code(s): U07.1 - COVID-19 Status: Acute (2) Viral pneumonia Code(s): J12.9 - VIRAL PNEUMONIA, UNSPECIFIED Status: Acute (3) Bilateral pulmonary embolism Code(s): I26.99 - OTHER PULMONARY EMBOLISM WITHOUT ACUTE COR PULMONALE Status : Acute - Plan Plan: Patient is a 30F admitted for respiratory support for bilateral PEs after being recently discharged s/p and prolonged course d/t covid pneumonia. #Acute hypoxic respiratory failure 2/2 bilateral PE, recent COVID pneumonia - Day 23 of COVID symptoms, s/p Remdesivir, convalescent plasma on 06/04/20. Dr Yepez consulted last hospitalization, not candidate for IL-6 inh. On dexamethasone daily. Otherwise, supportive care. Will try to wean dexamethasone at this time. - Patient has NC already set up at home. - CTA with multiple bilateral PEs and ground glass opacities - Continue HFNC, RT actively titrating - Received Azithro/Ceftriaxone in ED, recently completed azithormycin course with previous hospitalization, will not continue. - Albuterol [id number] and mucinex DM. Bld cx's NGTD. - Transitioned from therapeutic lovenox to eliquis on 06/06 (today is day 2). Will need 10mg x7 days then decrease to 5mg on 06/13 to continue for 3 months. - Will consult pulmonology today #PP pre-E - s/p magnesium. Was discharged on nifedipine, continued - BP well controlled this admission #PPD #13 Code Status: FULL PCP: Dr Boggs Dispo: Continue monitoring respiratory status and wean HFNC as tolerated. Continue eliquis. Patient to work with PT. Consulting pulmonology. Continue supportive care. Addendum - Attending - Attending Attestation Date/Time: 06/07/20 1222 I personally evaluated the patient and discussed the management with Dr. Copeland I agree with the History, Examination, Assessment and Plan documented above with any addition or exceptions noted below - Patient states that her SOB is better when she is resting. Still having fatigue and SOB when moving around. Afebrile RR 24-28 O2 sats 96-100% A/P: 1) Acute hypoxic resp failure secondary to PE- Continue eliquis; wean O2 as tolerated. Will discuss with pulmonary if any further there are any further recommendations. Will start PT. 2) HTN- well controlled; continue nifedipine.
[2020-06-07] MEDS: Apixaban 5 MG TAB PO SCH ×2 (07:46→19:21)
[2020-06-07] MEDS: Dexamethasone 4 mg/ml Vial SLOW IVP SCH (07:46)
[2020-06-07] MEDS: Albuterol 200 PUFF (6.7GM INHALER) INH SCH ×4 (07:46→18:08)
[2020-06-07] MEDS: NIFEdipine XL 60 MG TAB PO SCH (07:48)
[2020-06-07] MEDS: guaiFENesin ER 600 MG TAB PO SCH ×2 (07:48→19:21)
[2020-06-08 05:09] LABS: Hemoglobin 9.8 g/dL (12.0-16.0); Platelet Count 200 thou/uL (130-400)
[2020-06-08 05:29] LABS: Calc. Creatinine Clearance 186 mL/min (70-130); Estimated GFR-MDRD Greater than 90
[2020-06-08] MEDS: Albuterol 200 PUFF (6.7GM INHALER) INH SCH ×4 (06:06→18:43)
--- NOTE | 2020-06-08 06:34 | PDOC.FM ---
- Subjective Subjective: Patient is doing better today, reports her breathing is improved. Continues to de-sat with movement. Discussed plans to continue to try to wean oxygen and to have patient work with PT today, patient agreeable. - Objective Vital Signs & Weight: Vital Signs (12 hours) Temp Pulse Resp BP Pulse Ox 06/08/20 03:28 98.4 F 67 17 128/80 100 06/07/20 23:36 98.2 F 85 26 H 136/84 100 06/07/20 19:30 98.1 F 77 27 H 133/86 100 Weight Weight 78.698 kg I&O: 06/06/20 06/07/20 06/08/20 06:59 06:59 06:59 Intake Total 890 1750 840 Output Total 2100 2650 1900 Balance -1379 -150 -1972 Result Diagrams: 06/08/20 04:48 06/08/20 04:48 Phys Exam - Physical Examination Constitutional: NAD HEENT: sclera anicteric slightly dry tongue, no erythema noted in oropharynx Neck: supple, full ROM Respiratory: no wheezing, clear to auscultation bilateral Cardiovascular: RRR, no significant murmur Gastrointestinal: soft, non-tender Musculoskeletal: no edema, pulses present Neurological: non-focal, moves all 4 limbs Psychiatric: normal affect, A&O x 3 Skin: no rash Dx/Plan (1) COVID-19 Code(s): U07.1 - COVID-19 Status: Acute (2) Viral pneumonia Code(s): J12.9 - VIRAL PNEUMONIA, UNSPECIFIED Status: Acute (3) Bilateral pulmonary embolism Code(s): I26.99 - OTHER PULMONARY EMBOLISM WITHOUT ACUTE COR PULMONALE Status : Acute - Plan Plan: Patient is a 30F admitted for respiratory support for bilateral PEs after being recently discharged s/p and prolonged course d/t covid pneumonia. #Acute hypoxic respiratory failure 2/2 bilateral PE, recent COVID pneumonia - Day 24 of COVID symptoms, s/p Remdesivir, convalescent plasma on 06/04/20. Dr Yepez consulted last hospitalization, not candidate for IL-6 inh. On dexamethasone daily, weaning starting 06/08. Otherwise, supportive care. - Patient has NC already set up at home. - CTA with multiple bilateral PEs and ground glass opacities - Continue HFNC, RT actively titrating; will try to wean at this time as patient has been satting 100% on 40L with FiO2 at 53-54%. Doing well on 30L with FiO2 @ 50%, satting 100% during morning rounds. - Received Azithro/Ceftriaxone in ED, recently completed azithormycin course with previous hospitalization, will not continue. - Albuterol [id number] and mucinex DM. Bld cx's NGTD. - Transitioned from therapeutic lovenox to eliquis on 06/06 (today is day 3). Will need 10mg x7 days then decrease to 5mg on 06/13 to continue for 3 months. - Will consult pulmonology today - PT to work with patient to help with strengthening #PP pre-E - s/p magnesium. Was discharged on nifedipine, continued - BP well controlled this admission #PPD #14 Code Status: FULL PCP: Dr Boggs Dispo: Continue monitoring respiratory status and wean HFNC as tolerated. Continue eliquis. Patient to work with PT. Consulting pulmonology. Continue supportive care. Addendum - Attending - Attending Attestation Date/Time: 06/08/20 0497 I personally evaluated the patient and discussed the management with Dr. Copeland I agree with the History, Examination, Assessment and Plan documented above with any addition or exceptions noted below - Patient states that she feels less SOB today. Does stop that she still gets SOB with moving around. Sat up in chair yesterday for short time. Afebrile VSS. A/P: 1) Acute respiratory failure secondary to PE and COVID 19 - continue to wean hi flow O2 as tolerated. PT to start working with patient today. Continue Eliquis. 2) HTN - continue nifedipine
[2020-06-08] MEDS: guaiFENesin ER 600 MG TAB PO SCH ×2 (08:24→20:24)
[2020-06-08] MEDS: NIFEdipine XL 60 MG TAB PO SCH (08:24)
[2020-06-08] MEDS: Dexamethasone 4 MG TAB PO SCH (08:24)
[2020-06-08] MEDS: Apixaban 5 MG TAB PO SCH ×2 (08:24→20:24)
[2020-06-08] MEDS: Cepastat Lozenges 1 LOZ PO PRN (18:43)
--- NOTE | 2020-06-09 06:14 | PDOC.FM ---
- Subjective Subjective: Patient doing well this morning. Worked with physical therapy yesterday. Reports she continues to feel short of breath with movement and while working with PT. Feels less sob at rest. - Objective Vital Signs & Weight: Vital Signs (12 hours) Temp Pulse Resp BP Pulse Ox 06/09/20 04:00 97.9 F 76 20 120/77 99 06/09/20 03:07 100 06/08/20 20:00 98.3 F 83 22 H 132/85 100 06/08/20 19:58 95 Weight Weight 78.29 kg I&O: 06/07/20 06/08/20 06/09/20 06:59 06:59 06:59 Intake Total 3614 695 9830 Output Total 2650 1900 1960 Balance -900 -1060 -80 Result Diagrams: 06/08/20 04:48 06/08/20 04:48 Phys Exam - Physical Examination Constitutional: NAD HEENT: moist MMs, sclera anicteric Neck: supple, full ROM Respiratory: no wheezing, clear to auscultation bilateral Cardiovascular: RRR, no significant murmur Gastrointestinal: soft, non-tender Musculoskeletal: no edema, pulses present Neurological: non-focal, moves all 4 limbs Psychiatric: normal affect, A&O x 3 Skin: no rash, normal turgor Dx/Plan (1) COVID-19 Code(s): U07.1 - COVID-19 Status: Acute (2) Viral pneumonia Code(s): J12.9 - VIRAL PNEUMONIA, UNSPECIFIED Status: Acute (3) Bilateral pulmonary embolism Code(s): I26.99 - OTHER PULMONARY EMBOLISM WITHOUT ACUTE COR PULMONALE Status : Acute - Plan Plan: Patient is a 30F admitted for respiratory support for bilateral PEs after being recently discharged s/p and prolonged course d/t covid pneumonia. #Acute hypoxic respiratory failure 2/2 bilateral PE, recent COVID pneumonia - Day 25 of COVID symptoms, s/p Remdesivir, convalescent plasma on 06/04/20. Dr Yepez consulted last hospitalization, not candidate for IL-6 inh. On dexamethasone daily, weaning starting 06/08. Otherwise, supportive care. - Patient has NC already set up at home. - CTA with multiple bilateral PEs and ground glass opacities - Continue HFNC, RT actively titrating; will continue to wean at this time, patient has been tolerating 30L with FiO2 at 53-54%. - Received Azithro/Ceftriaxone in ED, recently completed azithormycin course with previous hospitalization, will not continue. - Albuterol [id number]-CF and mucinex DM. Bld cx's NGTD. - Transitioned from therapeutic lovenox to eliquis on 06/06 (today is day 3). Will need 10mg x7 days then decrease to 5mg on 06/13 to continue for 3 months. - PT to work with patient to help with strengthening #PP pre-E - s/p magnesium. Was discharged on nifedipine, continued - BP well controlled this admission #PPD #15 Code Status: FULL PCP: Dr Boggs Dispo: Continue monitoring respiratory status and wean HFNC as tolerated. Continue eliquis. Patient to work with PT. Continue supportive care. Addendum - Attending - Attending Attestation Date/Time: 06/09/20 6800 I personally evaluated the patient and discussed the management with Dr. Copeland I agree with the History, Examination, Assessment and Plan documented above with any addition or exceptions noted below - Patient felling better. SOB with moving. Worked with PT briefly yesterday. Afebrile VSS. A/P: 1) Acute hypoxic resp failure due to PE and COVID 19 - Continue eliquis, Continue PT. Wean O2 as tolerated.
[2020-06-09] MEDS: Albuterol 200 PUFF (6.7GM INHALER) INH SCH ×3 (09:16→18:47)
[2020-06-09] MEDS: guaiFENesin ER 600 MG TAB PO SCH ×2 (09:17→20:21)
[2020-06-09] MEDS: Apixaban 5 MG TAB PO SCH ×2 (09:17→20:21)
[2020-06-09] MEDS: NIFEdipine XL 60 MG TAB PO SCH (09:17)
[2020-06-09] MEDS: Dexamethasone 4 MG TAB PO SCH (09:17)
[2020-06-09] MEDS: Acetaminophen 325 MG TAB PO PRN ×2 (20:32→20:40)
[2020-06-10] MEDS: Acetaminophen 325 MG TAB PO PRN (04:47)
[2020-06-10] MEDS: Cepastat Lozenges 1 LOZ PO PRN (04:47)
--- NOTE | 2020-06-10 06:21 | PDOC.FM ---
- Subjective Subjective: Patient doing well this morning, reports she feels that her breathing is stable from yesterday. Was able to work with PT yesterday and was able to get out of bed with continued adequate oxygen saturation. She had some msk chest pain overnight that improved with tylenol, a heating pad, and robaxin. Patient had questions about why her pulse elevates at times, and it was discussed that this is the body's natural response with movement, with sob, and with pain. Discussed continuing to wean oxygen, patient agreeable. - Objective Vital Signs & Weight: Vital Signs (12 hours) Temp Pulse Resp BP Pulse Ox 06/10/20 04:34 98.1 F 72 22 H 130/77 100 06/09/20 23:15 98.7 F 82 24 H 132/83 100 06/09/20 20:25 98.7 F 101 H 22 H 138/81 100 Weight Weight 78.29 kg I&O: 06/08/20 06/09/20 06/10/20 06:59 06:59 06:59 Intake Total 840 1880 1220 Output Total 1900 1960 1550 Balance -1060 -80 -330 Result Diagrams: 06/08/20 04:48 06/08/20 04:48 Phys Exam - Physical Examination Constitutional: NAD HEENT: moist MMs, sclera anicteric Neck: supple, full ROM Respiratory: no wheezing, clear to auscultation bilateral Cardiovascular: RRR, no significant murmur Gastrointestinal: soft, non-tender Musculoskeletal: no edema, pulses present Neurological: non-focal, moves all 4 limbs Psychiatric: normal affect, A&O x 3 Skin: no rash, normal turgor Dx/Plan (1) COVID-19 Code(s): U07.1 - COVID-19 Status: Acute (2) Viral pneumonia Code(s): J12.9 - VIRAL PNEUMONIA, UNSPECIFIED Status: Acute (3) Bilateral pulmonary embolism Code(s): I26.99 - OTHER PULMONARY EMBOLISM WITHOUT ACUTE COR PULMONALE Status : Acute - Plan Plan: Patient is a 30F admitted for respiratory support for bilateral PEs after being recently discharged s/p and prolonged course d/t covid pneumonia. #Acute hypoxic respiratory failure 2/2 bilateral PE, recent COVID pneumonia - Day 26 of COVID symptoms, s/p Remdesivir, convalescent plasma on 7/24/20. Dr Yepez consulted last hospitalization, not candidate for IL-6 inh. On dexamethasone daily, weaning starting 06/08. Otherwise, supportive care. - Patient has NC already set up at home. - CTA with multiple bilateral PEs and ground glass opacities - Continue HFNC, RT actively titrating; will continue to wean at this time, patient has been tolerating 30L with FiO2 at 53%. - Received Azithro/Ceftriaxone in ED, recently completed azithormycin course with previous hospitalization, will not continue. - Albuterol [id number] and mucinex DM. Bld cx's NGTD. - Transitioned from therapeutic lovenox to eliquis on 06/06 (today is day 5). Will need 10mg x7 days then decrease to 5mg on 06/13 to continue for 3 months. - PT to work with patient to help with strengthening #PP pre-E - s/p magnesium. Was discharged on nifedipine, continued - BP well controlled this admission #PPD #16 -Patient filled out EPDS, score of 7 -will continue to monitor mood Code Status: FULL PCP: Dr Boggs Dispo: Continue monitoring respiratory status and wean HFNC as tolerated. Continue eliquis. Patient to continue to work with PT. Continue supportive care. Addendum - Attending - Attending Attestation Date/Time: 06/10/20 [id number] I personally evaluated the patient and discussed the management with Dr. Copeland I agree with the History, Examination, Assessment and Plan documented above with any addition or exceptions noted below - Patient without complaints except concern over her heart rate increasing when she moves or is SOB. Afebrile VSS. A /P: 1) Acute hypoxic respiratory failure due to PE and COVID19 - continues to slowly improve. Will continue to wean O2 as tolerated. 2) Deconditioning- continue PT. 3) PE - continue Eliquis
[2020-06-10] MEDS: Apixaban 5 MG TAB PO SCH ×2 (08:38→21:59)
[2020-06-10] MEDS: Dexamethasone 1 MG TAB PO SCH (08:38)
[2020-06-10] MEDS: guaiFENesin ER 600 MG TAB PO SCH ×2 (08:38→22:00)
[2020-06-10] MEDS: Methocarbamol 500 MG TAB PO SCH ×3 (08:38→21:59)
[2020-06-10] MEDS: NIFEdipine XL 60 MG TAB PO SCH (08:38)
[2020-06-10] MEDS: Albuterol 200 PUFF (6.7GM INHALER) INH SCH ×4 (08:39→21:58)
--- NOTE | 2020-06-10 18:12 | PDOC.BPN ---
- Brief Progress Note Spoke with patient's brother Lance. Discussed that patient is requiring oxygen but we are able to slowly wean the amount we are giving her based on patient tolerance. Discussed that we have been giving her steroids to help with the COVID pneumonia and blood thinners to help prevent more pulmonary emboli from forming so that her body can absorb the clots that have formed. Brother thanked me for the call.
[2020-06-10] MEDS: hydrOXYzine 25 MG TAB PO PRN (22:00)
[2020-06-11] MEDS: Acetaminophen 325 MG TAB PO PRN (03:51)
--- NOTE | 2020-06-11 06:17 | PDOC.FM ---
- Subjective Subjective: Patient reports that since she has been taken off of the HFNC and put on 3-4L of O2 NC she has felt sob and like her breathing is "forced." She also continues to endorse palpitations and MSK chest pain that is reproducible on palpation. - Objective Vital Signs & Weight: Vital Signs (12 hours) Temp Pulse Resp BP Pulse Ox 06/11/20 06:08 100 06/11/20 03:53 98.4 F 89 20 122/97 H 100 06/11/20 02:05 95 20 140/82 100 06/11/20 01:15 98.0 F 86 22 H 115/78 100 06/10/20 22:13 100 06/10/20 20:02 97.7 F 89 18 126/73 100 Weight Weight 78.29 kg I&O: 06/09/20 06/10/20 06/11/20 06:59 06:59 06:59 Intake Total 1880 1220 1030 Output Total 1960 1550 2150 Balance -80 330 1128 Result Diagrams: 06/08/20 04:48 06/08/20 04:48 Phys Exam - Physical Examination Constitutional: NAD HEENT: moist MMs, sclera anicteric Neck: supple, full ROM Respiratory: no wheezing, clear to auscultation bilateral Cardiovascular: RRR, no significant murmur Gastrointestinal: soft, non-tender Musculoskeletal: no edema ttp over chest Neurological: non-focal, moves all 4 limbs Psychiatric: normal affect, A&O x 3 Skin: no rash, normal turgor Dx/Plan (1) COVID-19 Code(s): U07.1 - COVID-19 Status: Acute (2) Viral pneumonia Code(s): J12.9 - VIRAL PNEUMONIA, UNSPECIFIED Status: Acute (3) Bilateral pulmonary embolism Code(s): I26.99 - OTHER PULMONARY EMBOLISM WITHOUT ACUTE COR PULMONALE Status : Acute - Plan Plan: Patient is a 30F admitted for respiratory support for bilateral PEs after being recently discharged s/p and prolonged course d/t covid pneumonia. #Acute hypoxic respiratory failure 2/2 bilateral PE, recent COVID pneumonia - Day 27 of COVID symptoms, s/p Remdesivir, convalescent plasma on 06/04/20. Dr Yepez consulted last hospitalization, not candidate for IL-6 inh. On dexamethasone daily, weaning starting 06/08. Otherwise, supportive care. - Patient has NC already set up at home. - CTA with multiple bilateral PEs and ground glass opacities - Patient weaned from HFNC to 3L NC overnight, has been satting 100% on 3-4L though patient desats with movement into the upper 80s. Discussed with RT to increase her oxygen to 6L NC and see how the patient does. - Received Azithro/Ceftriaxone in ED, recently completed azithormycin course with previous hospitalization, will not continue. - Albuterol [id number] and mucinex DM. Bld cx's NGTD. - Transitioned from therapeutic lovenox to eliquis on 06/06 (today is day 6). Will need 10mg x7 days then decrease to 5mg on 06/13 to continue for 3 months. - PT to work with patient to help with strengthening. Per report patient was up ambulating around the room yesterday with PT. - Called patient's brother, Lance, 06/10 with permission. Discussed patient's care and goals to wean oxygen as tolerated and continue to have patient work with PT. Family concerned about weaning oxygen. Discussed that we are weaning oxygen slowly and the ability to wean demonstrates improvement, family agreeable to plan of care. Plan to call again this afternoon. #PP pre-E - s/p magnesium. Was discharged on nifedipine, continued - BP well controlled this admission #PPD #17 -Patient filled out EPDS, score of 7 -will continue to monitor mood #Costochondritis -patient endorses chest pain reproducible to palpation -ordering EKG to assess further -will schedule tylenol Code Status: FULL PCP: Dr Boggs Dispo: Continue monitoring respiratory status. Patient weaned from HFNC to NC overnight, will monitor throughout the day while patient works with PT. Continue eliquis. Continue to wean steroids. Continue supportive care. Addendum - Attending - Attending Attestation Date/Time: 06/11/20 2506 I personally evaluated the patient and discussed the management with Dr. Copeland I agree with the History, Examination, Assessment and Plan documented above with any addition or exceptions noted below - Patient c/o increased SOB since she was change to NC. Afebrile VSS A/P: 1) Acute hypoxic resp failure - weaned to NC overnight but pateint c/o SOB and desaturates with movement. Will have RT evaluate and increase O2 versus possibly restarted high flow. Continue to PT.
[2020-06-11] MEDS: Methocarbamol 500 MG TAB PO SCH ×3 (08:47→21:29)
[2020-06-11] MEDS: guaiFENesin ER 600 MG TAB PO SCH ×2 (08:47→21:28)
[2020-06-11] MEDS: NIFEdipine XL 60 MG TAB PO SCH (08:47)
[2020-06-11] MEDS: Apixaban 5 MG TAB PO SCH ×2 (08:47→21:28)
[2020-06-11] MEDS: Albuterol 200 PUFF (6.7GM INHALER) INH SCH ×4 (08:48→21:30)
[2020-06-11] MEDS: Benzonatate 100 MG CAP PO PRN (08:48)
[2020-06-11] MEDS: Dexamethasone 1 MG TAB PO SCH (08:48)
[2020-06-11] MEDS: Cepastat Lozenges 1 LOZ PO PRN (09:20)
[2020-06-11] MEDS: Acetaminophen 500 MG TAB PO SCH ×2 (16:22→21:34)
[2020-06-11] MEDS: hydrOXYzine 25 MG TAB PO PRN (21:29)
[2020-06-12] MEDS: ALPRAZolam 0.25 MG TAB PO PRN ×4 (01:13→19:18)
[2020-06-12] MEDS: Acetaminophen 500 MG TAB PO SCH ×2 (05:43→13:27)
[2020-06-12] MEDS: Albuterol 200 PUFF (6.7GM INHALER) INH SCH ×4 (05:46→17:48)
--- NOTE | 2020-06-12 05:49 | PDOC.FM ---
- Objective Vital Signs & Weight: Vital Signs (12 hours) Temp Pulse Resp BP Pulse Ox 06/12/20 02:35 98.2 F 88 18 132/88 100 06/11/20 21:20 100 06/11/20 19:00 98.4 F 105 H 20 134/85 100 Weight Weight 78.29 kg I&O: 06/10/20 06/11/20 06/12/20 06:59 06:59 06:59 Intake Total 1220 1030 720 Output Total 1550 2150 800 Balance -330 -1120 -80 Result Diagrams: 06/08/20 04:48 06/08/20 04:48 Dx/Plan - Plan Plan: Patient is a 30F admitted for respiratory support for bilateral PEs after being recently discharged s/p and prolonged course d/t covid pneumonia. #Acute hypoxic respiratory failure 2/2 bilateral PE, recent COVID pneumonia - Day 28 of COVID symptoms, s/p Remdesivir, convalescent plasma on 06/04/20. Dr Yepez consulted last hospitalization, not candidate for IL-6 inh. On dexamethasone daily, weaning starting 06/08. Otherwise, supportive care. - Patient has NC already set up at home. - CTA with multiple bilateral PEs and ground glass opacities - Patient weaned from HFNC to 3L NC overnight, has been satting 100% on 3-4L though patient desats with movement into the upper 80s. Discussed with RT to increase her oxygen to 6L NC and see how the patient does. - Received Azithro/Ceftriaxone in ED, recently completed azithormycin course with previous hospitalization, will not continue. - Albuterol [id number] and mucinex DM. Bld cx's NGTD. - Transitioned from therapeutic lovenox to eliquis on 06/06 (today is day 7). Will need 10mg x7 days then decrease to 5mg on 06/13 to continue for 3 months. - PT to work with patient to help with strengthening. Per report patient was up ambulating around the room yesterday with PT. - Called patient's brother, Lance, 06/10 with permission. Discussed patient's care and goals to wean oxygen as tolerated and continue to have patient work with PT. Family concerned about weaning oxygen. Discussed that we are weaning oxygen slowly and the ability to wean demonstrates improvement, family agreeable to plan of care. Plan to call again this afternoon. #PP pre-E - s/p magnesium. Was discharged on nifedipine, continued - BP well controlled this admission #PPD #18 -Patient filled out EPDS, score of 7 -will continue to monitor mood #Costochondritis -patient endorses chest pain reproducible to palpation -ordering EKG to assess further -will schedule tylenol Code Status: FULL PCP: Dr Boggs Dispo: Continue monitoring respiratory status. Patient weaned from HFNC to NC overnight, will monitor throughout the day while patient works with PT. Continue eliquis. Continue to wean steroids. Continue supportive care.
[2020-06-12] MEDS: guaiFENesin ER 600 MG TAB PO SCH ×2 (07:37→21:47)
[2020-06-12] MEDS: Dexamethasone 1 MG TAB PO SCH (07:37)
[2020-06-12] MEDS: Methocarbamol 500 MG TAB PO SCH ×3 (07:37→21:46)
[2020-06-12] MEDS: Apixaban 5 MG TAB PO SCH ×2 (07:37→21:46)
[2020-06-12] MEDS: NIFEdipine XL 60 MG TAB PO SCH (07:38)
--- NOTE | 2020-06-12 09:15 | PDOC.FM ---
- Subjective Subjective: Patient is anxious. Still feeling sensation of subjective dyspnea and is watching her portable oxygen/HR monitor continually. No fever, chills. No cough. +SOB as discussed. No n/v/diarrhea/constipation. - Objective MAR Reviewed: Yes Vital Signs & Weight: Vital Signs (12 hours) Temp Pulse Resp BP Pulse Ox 06/12/20 08:14 98.3 F 92 20 140/94 H 100 06/12/20 05:49 100 06/12/20 02:35 98.2 F 88 18 132/88 100 06/11/20 21:20 100 Weight Weight 78.29 kg I&O: 06/11/20 06/12/20 06/13/20 06:59 06:59 06:59 Intake Total 1030 1200 Output Total 2150 800 Balance -1120 400 Result Diagrams: 06/08/20 04:48 06/08/20 04:48 Radiology Reviewed by me: Yes Phys Exam - Physical Examination Constitutional: NAD (but anxious appearing) Respiratory: no wheezing (scant, crackles, no inc wob or rtx) Cardiovascular: RRR, no significant murmur Gastrointestinal: soft, non-tender Musculoskeletal: no edema Neurological: non-focal, normal sensation, moves all 4 limbs Lymphatic: no nodes Psychiatric: normal affect (anxious affect and mood), A&O x 3 Skin: no rash, normal turgor, cap refill <2 seconds Dx/Plan - Plan Plan: COVID PNA c/b bilateral pulmonary embolism with relatively significant deconditioning -improving, continue to wean O2 (I turned down NC to 2 and she maintained saturation > 95% with no inc wob) -continue eliquis -taper dex -IS to bedside and advised to use q15-30 minuts -ambulate around room TID. We discussed that tachycardia with ambulation is expected for her condition, and desaturations are possible Likely Acute stress reaction, r/o NICOLE, MDD, other -she is on xanax PRN, which I feel is reasonable given her improving respiratory status and not insignificant psychiatric component S/p CD 2/2 placental abruption c/b preE with severe features -continue to monitor BP I spent approximately 45 minutes with the patient with >50% of that time spent counseling about course of recovering from COVID and PE's. I also spoke with her mom at bedside and answered all questions. She voiced gratitude for the time and felt like everything had been explained to her satisfaction.
[2020-06-12] MEDS ORDERED: Acetaminophen 500 MG TAB PO PRN (13:20)
[2020-06-12] MEDS: hydrOXYzine 25 MG TAB PO PRN (15:02)
--- NOTE | 2020-06-12 17:39 | PDOC.BPN ---
<Megan Beltre - Last Filed: 06/12/20 17:54> - Brief Progress Note Have had multiple lengthy conversations with patient today, by both telephone to room and in person. Patient has many concerns in regards to her symptoms and care. Questions were again answered in addition to discussing with family that was on the phone. Significant anxiety is contributory to her intermittent tachycardia in addition to deconditioning. Symptoms will improve when patient is resting or sleeping. She has been improving clinically, when O2 was decreased from 3L->2L patient became extremely anxious this afternoon and was requesting 5L or HFNC from nurse despite satting 98-99% on 2L. Patient and family have been in contact with surrounding hospital about transfer. Discussed option of leaving AMA and discussed the risks associated with this if patient desires to pursue care at another facility. Family would appreciate to be called when physicians are rounding daily for updates. <Mello Burch - Last Filed: 06/13/20 07:14> Addendum - Attending - Attending Attestation Date/Time: 06/13/20 0713 Please see my progress note. The patient was previously very reassured. Will monitor.
[2020-06-12] MEDS: Morphine 2 MG/ML VIAL SLOW IVP PRN (21:47)
[2020-06-12 22:27] LABS: ALT (SGPT) 18 U/L (8-55); AST (SGOT) 19 U/L (5-34); Albumin 3.8 g/dL (3.5-5.0); Alkaline Phosphatase 135 U/L (40-110); Anion Gap 11 mmol/L (10-20); BUN (Urea Nitrogen) 12 mg/dL (7.0-18.7); Bilirubin, Total 0.3 mg/dL (0.2-1.2); Calc. Creatinine Clearance 172 mL/min (70-130); Calcium 9.2 mg/dL (7.8-10.44); Carbon Dioxide 24 mmol/L (22-29); Chloride 105 mmol/L (98-107); Estimated GFR-MDRD Greater than 90; Globulin 3.7 g/dL (2.4-3.5); Glucose 100 mg/dL (70-105); Potassium 3.8 mmol/L (3.5-5.1); Protein, Total 7.5 g/dL (6.0-8.3); Sodium 136 mmol/L (136-145)
[2020-06-12 22:31] LABS: Troponin I 0.027 ng/mL (< 0.028)
[2020-06-12 22:55] LABS: #Basophils 0.1 thou/uL (0.0-0.2); #Eosinphils 0.3 thou/uL (0.0-0.7); #Lymphocytes 1.7 thou/uL (1.20-3.40); #Monocytes 0.5 thou/uL (0.11-0.59); #Neutrophils 5.2 thou/uL (1.40-6.50); %Basophils 0.9 % (0.0-1.0); %Eosinophils 4.3 % (0.0-10.0); %Lymphocytes 21.8 % (21.0-51.0); %Monocytes 6.8 % (0.0-10.0); %Neutrophils 66.1 % (42.0-75.0); Hemoglobin 11.3 g/dL (12.0-16.0); Mean Corpuscular HGB CONC 32.9 g/dL (32.0-36.0); Mean Corpuscular Hemoglobin 29.6 pg (27.0-31.0); Mean Corpuscular Volume 90.1 fL (78.0-98.0); Mean Platelet Volume 8.1 fL (7.4-10.4); Platelet Count 356 thou/uL (130-400); RBC Distribution Width 16.3 % (11.5-14.5); Red Blood Cell (RBC) Count 3.81 mill/uL (4.20-5.40); White Blood Cell (WBC) Count 7.9 thou/uL (4.8-10.8)
--- NOTE | 2020-06-12 23:42 | PDOC.BPN ---
<RobbieEvangelina - Last Filed: 06/12/20 23:28> - Brief Progress Note Received a page from patient's nurse @ ~1941 stating that the patient's affect was dramatically different and that her family was downstairs arguing with the charge nurse. I went to talk with the family shortly after the page. 1 family member was Khmer speaking so he translated to the rest of the family for me. Family expressed concerns about the patient's heart and it beating fast and wanted medication to help treat this. I explained and reassured them that we were still taking very good care of the patient and from a medical standpoint she was improving. Reiterated that all of her physical symptoms were most likely due to her severe anxiety which had been present and worsening since admission per the day team prior to leaving for the day at the start of our shift and she had multiple medications available to take for this. Charge nurse then permitted the patient's mother to go up to the room to see her for a brief visit to check on her and hopefully alleviate some of the patient's anxiety. Shortly after this conversation, the attending physician, Dr. Mello Burch , came up to the hospital to talk to all of the family in Maltese & reassure them all once more. Upon talking to the patient's mother outside the patient's room the issue of her heart was brought up again by the mother. Dr. Burch reassured her once more in Maltese but did state that we would do a complete workup to check her heart and electrolytes including an EKG, CBC, CMP, troponin , D dimer, ferritin, LDH, and CRP. Mother was agreeable with this plan. <Mello Burch - Last Filed: 06/13/20 07:19> Addendum - Attending - Attending Attestation Date/Time: 06/13/20 0734 Mother of patient very concerned because patient is having chest discomfort and told them family she was dying, prompting them to come to the hospital. Of note , the night before she called 911 from inside the hospital. Physically everything points to her improving. She has mild tachycardia when moving and some general debility from so much time in the hospita. She has some mild dyspnea, which is not apparent on exam, but is explained by her pathology. Her overall clinical course is improving. I discussed this with the patient's mother at the door. She voiced understanding. I discussed that other things can occur, so we will complete a cardiac workup, but I anticipate it will be negative. The patient has become progressively more anxious, but now I am a bit more worried about paranoid. She has certainly been through a traumatic medical experience, with COVID, an emergent , and 2 complicated hospital courses. However, her affect seems more flat than anticipated during our exam. Will inquire about hallucinations in the AM. For now, will provide seroquel x 1 overnight and monitor response.
[2020-06-13] MEDS ORDERED: Ferrous Sulfate 325 MG TAB PO SCH (08:00)
[2020-06-13] MEDS: Albuterol 200 PUFF (6.7GM INHALER) INH SCH ×4 (08:02→22:51)
[2020-06-13] MEDS: guaiFENesin ER 600 MG TAB PO SCH (09:14)
[2020-06-13] MEDS: NIFEdipine XL 60 MG TAB PO SCH (09:14)
[2020-06-13] MEDS: Apixaban 5 MG TAB PO SCH ×2 (09:14→22:49)
[2020-06-13] MEDS: Prenatal Vitamin 1 TAB PO SCH (09:15)
[2020-06-13] MEDS: Methocarbamol 500 MG TAB PO SCH (09:15)
[2020-06-13] MEDS: Dexamethasone 1 MG TAB PO SCH (09:15)
[2020-06-13] MEDS: Morphine 2 MG/ML VIAL SLOW IVP PRN ×2 (09:43→22:50)
--- NOTE | 2020-06-13 10:47 | PDOC.FM ---
- Subjective Subjective: Patient still with intermittent chest discomfort and c/o dyspnea. No fever, chills, cough, congestion, diarrhea, constipation. - Objective MAR Reviewed: Yes Vital Signs & Weight: Vital Signs (12 hours) Temp Pulse Resp BP Pulse Ox 06/13/20 09:08 100 06/13/20 08:50 98.3 F 89 20 137/94 H 100 06/13/20 05:28 100 06/13/20 04:00 98.3 F 94 20 147/86 H 100 06/13/20 00:00 98.9 F 86 20 132/80 100 Weight Weight 78.29 kg I&O: 06/12/20 06/13/20 06/14/20 06:59 06:59 06:59 Intake Total 1200 1360 Output Total 800 1200 Balance 400 160 Result Diagrams: 06/12/20 22:48 06/12/20 21:56 EKG Reviewed by me: Yes (hypertrophy by criteria) Phys Exam - Physical Examination Constitutional: NAD (comfortable) Respiratory: no wheezing, no rales, clear to auscultation bilateral Cardiovascular: RRR, no significant murmur Gastrointestinal: soft, non-tender, no distention Musculoskeletal: no edema Neurological: non-focal, moves all 4 limbs Psychiatric: A&O x 3 (somewhat flat affect this AM. denies AVH) Skin: no rash Dx/Plan - Plan Plan: COVID pna c/b bilateral PE -Her clinical course has been steadily improving, but she has vacillated between reassurance and what seems to be profound anxiety, feeling like she is dying or she is not being care for adequately -continue eliquis -turned off oxygen in room (for ~45 minutes to one hour) and the patient maintained >=95% with no inc effort or symptoms -continue IS Deconditioning -PT seeing -nurse to ambulate in room TID, removed BS commode so that she can get up more NICOLE vs PPD, less likely psychosis -continue seroquel 25 mg qhs for sleep. Off label for NICOLE but I believe there is sufficient blurring of diagnoses that a low dose is warranted I spent approximately 45-60 minutes with >>50% of that time spent in direct face -to-face counseling (with the patient) and at the same time over the phone ( with mother and father) at the bedside again explaining the pathology, expected clinical course, need for the above therapies, and extensive discussion about the therapeutic use of oxygen.
[2020-06-14] MEDS: ALPRAZolam 0.25 MG TAB PO PRN (00:27)
--- NOTE | 2020-06-14 06:22 | PDOC.FM ---
- Subjective Subjective: Patient evaluated during morning rounds by myself and Dr. Burch. Dr. Burch was able to speak slovenian with the patient during the encounter. She continues to endorse concerns that she is still sob and continues to have some chest pain. She has been updating her family about her prognosis and they have reportedly been looking on line at various treatments for pulmonary emboli. She questioned several times during the encounter about receiving TPA or having a lung transplant for her pulmonary emboli. There was a lengthy discussion about how she continues to improve clinically and taking the eliquis BID is the best treatment for her at this time. The patient's oxygen was removed while she was lying in bed and her oxygen saturation was >95%. She did de-sat with movement, and this was discussed as an expected part of her clinical course. She was encouraged to continue to work with PT to increase her strength, and it was discussed that it is possible she may need oxygen with movement for some time after she returns home. - Objective Vital Signs & Weight: Vital Signs (12 hours) Temp Pulse Resp BP Pulse Ox 06/14/20 03:00 98 06/14/20 00:00 98.3 F 96 18 141/86 H 99 06/13/20 20:00 98.3 F 116 H 20 138/78 99 Weight Weight 78.29 kg I&O: 06/12/20 06/13/20 06/14/20 06:59 06:59 06:59 Intake Total 1200 1360 660 Output Total 800 1200 Balance 400 160 660 Result Diagrams: 06/12/20 22:48 06/12/20 21:56 Phys Exam - Physical Examination Anxious and concerned HEENT: moist MMs, sclera anicteric Neck: supple, full ROM Respiratory: no wheezing, clear to auscultation bilateral Cardiovascular: RRR, no significant murmur Gastrointestinal: soft, non-tender Musculoskeletal: no edema, pulses present Neurological: non-focal, moves all 4 limbs Deviation from normal: flat affect, peseverates on her oxygen requirements Skin: no rash, normal turgor Dx/Plan (1) COVID-19 Code(s): U07.1 - COVID-19 Status: Acute (2) Viral pneumonia Code(s): J12.9 - VIRAL PNEUMONIA, UNSPECIFIED Status: Acute (3) Bilateral pulmonary embolism Code(s): I26.99 - OTHER PULMONARY EMBOLISM WITHOUT ACUTE COR PULMONALE Status : Acute - Plan Plan: Patient is a 30F that was recently admitted for COVID PNA pp and has since been readmitted for respiratory support bilateral pulmonary emboli that occurred after patient went home after her last admission. #COVID pna c/b bilateral PE -Her clinical course has been steadily improving, required 2-4L NC overnight and was stable with O2Sat >95% with 0L NC while at rest -continue eliquis, transitioned to 5mg BID 06/14 -finished slow dexamethasone taper, dosing stopped 06/13 -continue IS -Pulmonology, Dr. Greer, consulted; appreciate recommendations regarding continued treatment of patient's pulmonary emboli as well as evaluation of her respiratory status #Deconditioning -PT seeing -nurse to ambulate in room TID, removed BS commode so that she can get up more #NICOLE vs PPD, less likely psychosis -continue seroquel 25 mg qhs for sleep. Patient reportedly had some lengths of decent sleep last night. Noted that seroquel is off label for NICOLE, but there may be sufficient blurring of diagnoses that a low continues to be warranted, and she has been tolerating this well Diet: Regular Dispo: inpatient for respiratory support for bilateral PE, continuing to wean oxygen while providing support about prognosis and expected clinical outcomes. Pulmonology consulted, Dr. Greer, appreciate recs Addendum - Attending - Attending Attestation Date/Time: 06/14/20 9547 I personally evaluated the patient and discussed the management with Dr. Morales. I agree with the History, Examination, Assessment and Plan documented above with any addition or exceptions noted below. The patient remains wary of our recommendations and is fixated on oxygen to improve her dyspnea on exertion. She has spit out pills after nurse has left at least once. Will consult pulm as the patient does not seem to agree with treatment or understand the plan of care despite lengthy and recurrent explanations. I spent ~45 minutes with >50% of that time spent in direct face to face counseling concerning her symptoms, anticipated clinical course, therapeutic modalities (risk>>benefit for tpa, surgery, IVC filter, etc), appropriate use of oxygen, deconditioning, etc. Additionally, I spent approximately 1 hour talking with the patient's parents with her permission, both with and without an automotive sales professional, and answered all of their questions. H
[2020-06-14] MEDS: Albuterol 200 PUFF (6.7GM INHALER) INH SCH ×4 (09:37→20:45)
[2020-06-14] MEDS: Apixaban 5 MG TAB PO SCH ×2 (09:38→20:48)
[2020-06-14] MEDS: NIFEdipine XL 60 MG TAB PO SCH (09:41)
[2020-06-14] MEDS: Prenatal Vitamin 1 TAB PO SCH (09:41)
--- NOTE | 2020-06-14 12:39 | RAD ---
EXAM: Single view of the chest HISTORY: Shortness of breath and bilateral pulmonary emboli COMPARISON: 06/04/2020 FINDINGS: Single view of the chest shows a normal sized cardiomediastinal silhouette. There has been significant improvement in the multifocal infiltrates in the lungs. The bones are unremarkable IMPRESSION: Improving multifocal infiltrates
[2020-06-14] MEDS: Morphine 2 MG/ML VIAL SLOW IVP PRN ×2 (15:12→20:50)
[2020-06-14] MEDS ORDERED: Budesonide 0.5 MG/2 ML NEB INH SCH (18:30)
[2020-06-14] MEDS ORDERED: Mometasone 100 MCG/PUFF (1 INHALER) INH SCH (20:00)
[2020-06-14] MEDS: Doxycycline 100 MG CAP PO SCH (20:46)
--- NOTE | 2020-06-14 20:51 | CON ---
DATE OF CONSULTATION: HISTORY OF PRESENT ILLNESS: Tamara Nunez is a 30-year-old female, speaks no Gabonese. I spoke to her with the help of a compound coating machine offbearer. She says she was having some difficulty breathing and palpitation. Complicated history, she has been in the hospital here off and on since 06/04/2020. She was discharged home on 06/10 with a diagnosis of westbrook positive pneumonia, slowly improving. Came back to the hospital with shortness of breath with now showing pulmonary emboli. As per the notes, she has apparently received remdesivir in the past and plasma. X-ray taken today shows improvement in her bilateral pulmonary infiltrates. PAST MEDICAL HISTORY: Otherwise, unremarkable. PREVIOUS SURGERIES: . SOCIAL HISTORY: No alcohol or tobacco abuse. She also received Decadron, Zithromax. She had a performed from recent hospitalization and was discharged on 06/03/2020, with westbrook positive pneumonia, preeclampsia, . CHRONIC MEDICATION: Procardia 60. REVIEW OF SYSTEMS: Otherwise, unremarkable. PHYSICAL EXAMINATION: VITAL SIGNS: She is tachycardic at 110, temperature 98, respirations 20, saturations are 100% on low-flow O2, blood pressure 134/63. CHEST: Decreased breath sounds. No wheezing. CARDIAC: Sinus tach. ABDOMEN: Soft without any mass. LABORATORY DATA: Lab shows a white count hemoglobin and hematocrit are stable. Chemistry profile shows that her labs are unremarkable. Her last C-reactive protein was less than 0.5. BNP is normal. IMPRESSION: 1. Bilateral pulmonary emboli, post -section, post westbrook positive pneumonia, on Eliquis. 2. Status post westbrook positive pneumonia, treated with remdesivir, plasma, Zithromax. Now persistent tachycardia, may be hypoxic. PLAN: I have added budesonide, doxycycline, steroid to regime. Re-swab her again. May give another bag of convalescent plasma if she is still positive. But she appears to be relatively stable. It may take some time for her resting tachycardia to improve. Clearly, oxygenation is much improved. Consultation note 70 minutes, 50% direct patient care. We will discuss. Job ID: [id number]
--- NOTE | 2020-06-15 06:15 | PDOC.FM ---
- Objective Vital Signs & Weight: Vital Signs (12 hours) Temp Pulse Resp BP Pulse Ox 06/15/20 00:00 69 18 100 06/14/20 20:00 97.9 F 110 H 18 132/88 100 Weight Weight 78.29 kg I&O: 06/13/20 06/14/20 06/15/20 06:59 06:59 06:59 Intake Total 1360 1140 630 Output Total 1200 Balance 160 1140 630 Result Diagrams: 06/12/20 22:48 06/12/20 21:56 Dx/Plan (1) COVID-19 Code(s): U07.1 - COVID-19 Status: Acute (2) Viral pneumonia Code(s): J12.9 - VIRAL PNEUMONIA, UNSPECIFIED Status: Acute (3) Bilateral pulmonary embolism Code(s): I26.99 - OTHER PULMONARY EMBOLISM WITHOUT ACUTE COR PULMONALE Status : Acute - Plan Plan: Patient is a 30F that was recently admitted for COVID PNA pp and has since been readmitted for respiratory support bilateral pulmonary emboli that occurred after patient went home after her last admission. #COVID pna c/b bilateral PE -Her clinical course has been steadily improving, required 2L NC overnight and was stable with O2Sat >99% -Worked with PT yesterday and was able to maintain SpO2>94% with ambulation -continue eliquis, transitioned to 5mg BID 06/14 -finished slow dexamethasone taper, dosing stopped 06/13 -continue IS -Pulmonology, Dr. Greer, consulted; started patient on mometasone, prednisone, and doxy for possible continued pneumonia; rec re-swabbing for COVID -CXR 06/14: improving multifocal infiltrates #Deconditioning -PT seeing, worked with patient yesterday, goals not met due to fatigue -nurse to ambulate in room TID, removed BS commode so that she can get up more #NICOLE vs PPD, less likely psychosis -continue seroquel 25 mg qhs for sleep. Noted that seroquel is off label for NICOLE , but there may be sufficient blurring of diagnoses that a low continues to be warranted, and she has been tolerating this well Diet: Regular Dispo: inpatient for respiratory support for bilateral PE, continuing to wean oxygen while providing support about prognosis and expected clinical outcomes. Pulmonology consulted, Dr. Greer, appreciate recs; COVID re-swab pending
[2020-06-15] MEDS: Mometasone 100 MCG/PUFF (1 INHALER) INH SCH ×2 (07:25→20:58)
[2020-06-15] MEDS: Albuterol 200 PUFF (6.7GM INHALER) INH SCH ×2 (07:26→11:32)
[2020-06-15] MEDS: predniSONE 20 MG TAB PO SCH (08:29)
[2020-06-15] MEDS: Apixaban 5 MG TAB PO SCH ×2 (08:29→20:57)
[2020-06-15] MEDS: Doxycycline 100 MG CAP PO SCH ×2 (08:29→20:57)
[2020-06-15] MEDS: Prenatal Vitamin 1 TAB PO SCH (08:30)
[2020-06-15] MEDS: NIFEdipine XL 60 MG TAB PO SCH (08:30)
[2020-06-15 10:14] VITALS: BMI 28.7
--- NOTE | 2020-06-15 11:00 | PDOC.FM ---
- Subjective Subjective: Patient satting well on no oxygen since 8 AM. She still c/o persistent dyspnea and chest discomfort with any exertion. No fever, chills, cough, congestion, n/ v. She has continued to ask for a lung operation or transplant. She is frustrated that pulmonology did not physically see her and would like a cardiology consultation. - Objective MAR Reviewed: Yes Vital Signs & Weight: Vital Signs (12 hours) Temp Pulse Resp BP Pulse Ox 06/15/20 08:36 100 06/15/20 08:00 98 F 94 22 H 129/78 97 06/15/20 04:00 97.9 F 72 22 H 128/74 06/15/20 00:00 69 18 100 Weight Admit Weight 78.29 kg Weight 78.29 kg I&O: 06/14/20 06/15/20 06/16/20 06:59 06:59 06:59 Intake Total 1140 1110 Balance 1140 1110 Result Diagrams: 06/12/20 22:48 06/12/20 21:56 Radiology Reviewed by me: Yes Phys Exam - Physical Examination Respiratory: no wheezing, no rales, no rhonchi, clear to auscultation bilateral Cardiovascular: RRR, no significant murmur Gastrointestinal: soft, non-tender (incision c/d/i s e/e) Musculoskeletal: no edema, pulses present Psychiatric: A&O x 3 (continued flat affect and distrust of medical information) Skin: no rash, normal turgor Dx/Plan (1) COVID-19 Code(s): U07.1 - COVID-19 Status: Acute (2) Viral pneumonia Code(s): J12.9 - VIRAL PNEUMONIA, UNSPECIFIED Status: Acute (3) Bilateral pulmonary embolism Code(s): I26.99 - OTHER PULMONARY EMBOLISM WITHOUT ACUTE COR PULMONALE Status : Acute - Plan Plan: Covid PNA, resolved, with ? superimposed infection -doxy/prednisone started by Dr. Greer -continue pulm toilet Bilateral PE -continue eliquies Deconditioning with persistent chest symptoms -will d/w cardiology and see if they can have a face to face with her -I believe these symptoms are best explained as sequelae of her PNA and PE's, as well as prolonged immobilization. She has been working with PT, who stated that she could go home, but does not exert much effort on her own. Dr. Greer thinks she can go home with home O2 (already set up). We will consult home health. I would also like [facility] to evaluate her. I am unsure if it is a cultural barrier or paranoia, but she seems to have a profound distrust of any medical recommendation made and feels like she is dying, despite evidence to the contrary.
--- NOTE | 2020-06-15 11:14 | PRG ---
DATE OF SERVICE: 06/15/2020 OBJECTIVE: VITAL SIGNS: Temperature is 97, pulse 72, respiratory rate 22, saturations 100% on 2 L, blood pressure 128/74. GENERAL: Nurse states she is very anxious. CHEST: No wheezing. No crackles. CARDIAC: Sinus tach, much improved. ABDOMEN: Soft. LABORATORY DATA: We are still awaiting results of the westbrook repeat test. BNP is normal. X-ray shows improvement in bilateral infiltrates. IMPRESSION: Respiratory failure, combination of coronavirus positive pneumonia and pulmonary emboli. Minimum 3 months of anticoagulation. As she is stable, she can be discharged home on doxycycline and prednisone for 10 days. Call Pulmonary if needed. Job ID: [id number]
[2020-06-15] MEDS ORDERED: Polyethylene Glycol 3350 17 GM Packet PO PRN (20:39)
[2020-06-16] MEDS: Mometasone 100 MCG/PUFF (1 INHALER) INH SCH (05:55)
--- NOTE | 2020-06-16 08:25 | CON ---
DATE OF CONSULTATION: REASON FOR CONSULTATION: Chest pain and tachycardia. HISTORY OF PRESENT ILLNESS: Ms. Nunez is a 30-year-old woman who recently delivered her first child. This was complicated by COVID positive pneumonia in addition to a PE. She recently presented with increased shortness of breath after being sent home and recovering from COVID pneumonia. She did receive Remdesivir in addition to low-dose steroids. The etiology to PE is unknown. This may have been complicated from COVID pneumonia versus recent . Ms. Nunez continues to complain of a constant chest pain. The pain can wax and wane, but remains constant. The pain is described as a sharp pain. It is worse with movement. It is not worse with lying down. She does appear anxious. No other ameliorating, exacerbating, or precipitating factors present. PAST MEDICAL HISTORY: None except for recent . SOCIAL HISTORY: No current tobacco or alcohol use. HOME MEDICATIONS: Procardia. REVIEW OF SYSTEMS: A 10-point review of systems is reviewed as above, otherwise negative. PHYSICAL EXAMINATION: GENERAL: Patient is a pleasant woman who is in no acute distress. The patient appears her stated age. VITAL SIGNS: Blood pressure 118/70, pulse 85, temperature 97.9. NEUROLOGIC: The patient is alert and oriented x3 with no focal neurologic deficits. HEENT: Sclerae without icterus. Mouth has moist mucous membranes with normal pallor. NECK: No JVD. Carotid upstroke brisk. No bruits bilaterally. LUNGS: Clear to auscultation with unlabored respirations. BACK: No scoliosis or kyphosis. CARDIAC: Regular rate and rhythm with normal S1 and S2. No S3 or S4 noted. No significant rubs, murmurs, thrills, or gallops noted throughout the precordium. PMI is not displaced. There is no parasternal heave. ABDOMEN: Soft, nontender, nondistended. No peritoneal signs present. No hepatosplenomegaly. No abnormal striae. EXTREMITIES: 2+ femoral and 2+ dorsalis pedis pulses. No cyanosis, clubbing, or edema. SKIN: No gross abnormalities. PERTINENT LABORATORY DATA: Hemoglobin 11.3. Creatinine 0.59. Bedside echo Doppler shows LVEF greater than 65%. LV appears hypercontractile. Mitral valve appears normal. RA and RV appear normal size. There is no pulmonary hypertension present. IMPRESSION: 1. Chest pain. 2. Hypoxia with exertion. 3. Currently . 4. COVID positive pneumonia, resolving with positive test on May 17. RECOMMENDATIONS: Given Ms. Nunez's recent finding on echo, her overall LVEF does appear stable and her symptoms of tachycardia with exertion and hypoxia do not appear to be cardiac related. This is likely pulmonic in origin. This is likely from COVID pneumonia in addition to bilateral PE. At this point, she is likely noninfectious given she was COVID positive in early May. It is almost 30 days since her last COVID test dated 05/17/2020. She does get quite hypoxic with pO2 of 89 noted with little exertion in addition to tachycardia. Her increased heart rate is secondary to hypoxia, which will likely slowly improve over time. We will leave any further recommendations to the discretion of Dr. Mitchel Greer. Ms. Nunez did have some concerns about why tPA was not given. Based on the CT scan, the bilateral pulmonary embolus was described as small in the intralobar pulmonary artery and right lower lobe branches. On her recent echo given that she has no pulmonary hypertension with normal size RA and RV, her hypoxia is likely related to both resolving COVID pneumonia in addition to bilateral PE. We will consider repeating her CT scan. We will leave it to the discretion of Dr. Mitchel Greer. We will continue with anticoagulation therapy. TPA also would be a relative contraindication with recent surgery, which I did discuss with Ms. Nunez. Otherwise, I have no further recommendations. Job ID: [id number]
[2020-06-16] MEDS: Prenatal Vitamin 1 TAB PO SCH (09:21)
[2020-06-16] MEDS: Doxycycline 100 MG CAP PO SCH (09:21)
[2020-06-16] MEDS: NIFEdipine XL 60 MG TAB PO SCH (09:21)
[2020-06-16] MEDS: predniSONE 20 MG TAB PO SCH (09:21)
[2020-06-16] MEDS: Apixaban 5 MG TAB PO SCH (09:22)
--- NOTE | 2020-06-16 11:04 | PDOC.FM ---
- Subjective Subjective: Patient continues to endorse some sob and palpitations. Discussed with her that both pulmonology and cardiology have stated that she is stable and ready for discharge. Echo was normal. Discussed that she is improving and her symptoms are what we expect at this time. Discussed that our plan is to discharge patient home today, and patient can continue to use oxygen at home with movement until she follows up with a pcp. Discussed recommendations to continue eliquis, mometasone, and doxycycline. Discussed that we will send hydroxyzine in for her anxiety but it would be beneficial for her to f/u with a pcp to re- asses her anxiety after she is out of the hospital and home bonding with her family. Discussed with patient that at this time it has been almost 1 month since the patient tested positive for COVID. Explained that per CDC guidelines even those considered having severe disease are recommended to quarantine for 20 days, and it has been over 20 days since she was positive. - Objective Vital Signs & Weight: Vital Signs (12 hours) Temp Pulse Resp BP Pulse Ox 06/16/20 05:55 97.9 F 85 20 118/70 99 06/16/20 00:18 97 Weight Admit Weight 78.29 kg Weight 78.29 kg I&O: 06/15/20 06/16/20 06/17/20 06:59 06:59 06:59 Intake Total 1110 840 Balance 1110 840 Result Diagrams: 06/12/20 22:48 06/12/20 21:56 Phys Exam - Physical Examination Constitutional: NAD HEENT: PERRLA, moist MMs Neck: supple, full ROM Respiratory: no wheezing, clear to auscultation bilateral Cardiovascular: RRR, no significant murmur Gastrointestinal: no distention Musculoskeletal: no edema, pulses present Neurological: non-focal, moves all 4 limbs Deviation from normal: flat affect, anxiety, denial about improving condition Skin: no rash, normal turgor Dx/Plan (1) COVID-19 Code(s): U07.1 - COVID-19 Status: Acute (2) Viral pneumonia Code(s): J12.9 - VIRAL PNEUMONIA, UNSPECIFIED Status: Acute (3) Bilateral pulmonary embolism Code(s): I26.99 - OTHER PULMONARY EMBOLISM WITHOUT ACUTE COR PULMONALE Status : Acute - Plan Plan: Patient is a 30F that was recently admitted for COVID PNA pp and has since been readmitted for respiratory support bilateral pulmonary emboli that occurred after patient went home after her last admission. #COVID pna c/b bilateral PE -Her clinical course has been steadily improving, was stable on RA throughout yesterday and at times last night. Patient continues to become anxious when she realizes that she does not have oxygen on. -continue eliquis, transitioned to 5mg BID 06/14 -finished slow dexamethasone taper, dosing stopped 06/13 -continue IS -Pulmonology, Dr. Greer, consulted; appreciate recs -will send patient home with course of doxy and mometasone -Cardiology, Dr. Cash, consulted; appreciate recs -echo done 06/15: EF >65%, normal pulmonary artery pressure -Plan to discharge patient home today. Discussed using oxygen at home with movement, but encouraged small exercises daily to encourage strength. Discussed continuing eliquis and doxycycline. Discussed using mometasone. Encouraged patient to f/u with a PCP within 1 week. Patient is unfunded. #Deconditioning -Patient continues to require oxygen with strenuous movements -Discussed with patient to use oxygen at home while walking/moving until she has a f/u with a pcp #NICOLE vs PPD, less likely psychosis -[facility] evaluated patient 06/15 and stated that she likely has some underlying depression, though was not a candidate for inpatient admission and safe to go home -Discussed with patient that we will send in hydroxyzine and to f/u with a pcp. Discussed that her mood is likely going to improve after she goes home and can spend time with her family. Diet: Regular Dispo: Discharge home today. Patient to use home oxygen with movement at home and to f/u with a pcp within 1 week. Addendum - Attending - Attending Attestation Date/Time: 06/16/20 [id number] I personally evaluated the patient and discussed the management with the team. I agree with the History, Examination, Assessment and Plan documented above with any addition or exceptions noted below. Again spent approximately 1 hour with patient with >50% of that time spent in direct [id number] care discussing discharge, expected clinical course, return precautions. She remains somewhat hesitant to believe the specialists' opinions , but at this point she has had a thorough workup. [facility] feels she is not a threat to herself, her baby, or anyone else but do recommend she follow up for services, which she has declined. I feel she is safe for discharge and her symptoms have been worked up very thoroughly. We discussed deconditioning again, and the need for continued effort to regain her strength. We discussed the infectivity of COVID, return precautions, and all questions were answered. I expressed that the staff all desire her to continue to improve and we discussed that she does not have an indication to stay in the hospital, making it higher risk for her to stay and to go home. She was again hesitant to trust this, but voiced some understanding. Will confirm with specialists and plan on dc. Will call her parents at her request to discuss as well.
[2020-06-16 13:19] LABS: SARS-CoV-2 MS2 Positive; SARS-CoV-2 N Gene Positive; SARS-CoV-2 S Gene Negative; SARS-CoV-2 by NAA Indeterminate (NotDetected); SARS-CoV-2 orf1ab Negative
[2020-06-16 15:22] VITALS: BP 138/79; TEMP 98.4
--- NOTE | 2020-06-16 17:46 | PRG ---
DATE OF SERVICE: 06/16/2020 SUBJECTIVE: Ms. Nunez's status is unchanged. She continues to be hypoxic with exertion. She also has tachycardia. Her LVEF did appear normal. Her right ventricle and right atrium also appeared normal with normal pulmonic pressures. This does correspond with small PEs present on a CT scan. OBJECTIVE: VITAL SIGNS: Blood pressure 130/79, pulse 98, temperature 98.4. LUNGS: Clear to auscultation. HEART: Regular rate and rhythm, tachycardic. ABDOMEN: Soft, nontender, nondistended. EXTREMITIES: No edema. PERTINENT LABORATORY DATA: Hemoglobin 11.3. IMPRESSION: 1. Hypoxia. 2. Tachycardia. 3. Recent pulmonary embolism. 4. Previous COVID pneumonia. RECOMMENDATIONS: Ms Nunez is greater than 20 days out from her complicated diagnosis of COVID pneumonia after recent delivery. She was tested positive for COVID pneumonia on May 17. She has not had fever during this hospitalization. At this point, continue supportive care as recommended. Her CV status appears stable. Her LVEF is normal with normal pulmonic pressures and normal right ventricle. Her CT scan suggested small PEs and certainly would be out of proportion to her current presentation. I, at length, discussed the reason for her tachycardia that occurs with hypoxia. I explained that it is on three separate occasions. She would like to have her heart rate slowed down. We discussed Toprol, but again her heart is in response to her hypoxia and could worsen her condition. At this point, she would like to think about her options. Otherwise, from my standpoint, I have no further recommendations. Her lung status is currently being followed by Pulmonary and we will leave any further recommendations at their discretion. We will follow peripherally. Job ID: [id number]
--- NOTE | 2020-06-17 07:43 | DIS ---
DATE OF ADMISSION: 06/04/2020 DATE OF DISCHARGE: 06/16/2020 ADMITTING RESIDENT: Pooja Lord MD ADMITTING ATTENDING: Dena Guthrie MD DISCHARGE RESIDENT: Yvette Copeland MD DISCHARGE ATTENDING: Mello Burch MD CONSULTS: Pulmonology, Dr. Greer; Cardiology, Dr. Lawrence; [facility]; PT; Case Management. PROCEDURES: None. IMAGIN06/04/2020, chest x-ray: Persistent multifocal interstitial and alveolar opacities. 06/04/2020, chest-thorax CTA: Bilateral pulmonary emboli. Diffuse bilateral pulmonary infiltrates. Ground-glass infiltrates are seen throughout lobes of both lungs. There is a more dense consolidation seen in the posterior mid lung thompson. 06/14/2020, chest x-ray: Improving multifocal infiltrates. 06/15/2020, echocardiogram: Ejection fraction is visually estimated at greater than 65%. Diastolic function cannot be assessed secondary to tachycardia. Mild mitral regurgitation is present. Mild tricuspid regurgitation. Normal pulmonary artery pressure. PRIMARY DIAGNOSES: COVID pneumonia, complicated by bilateral pulmonary emboli; deconditioning; generalized anxiety. SECONDARY DIAGNOSES: The patient is . DISCHARGE MEDICATIONS: 1. Eliquis 5 mg p.o. b.i.d. x180 tabs. 2. Doxycycline 100 mg p.o. b.i.d. x16 capsules. 3. Hydroxyzine 25 mg p.o. q.6 hours p.r.n. x30 tabs for anxiety and insomnia. 4. Mometasone 100 mcg inhaled b.i.d. x1 inhaler. 5. Nifedipine 60 mg p.o. daily x30 tabs. 6. vitamin 1 tab p.o. daily. DISCONTINUED MEDICATIONS: 1. Tylenol p.r.n. 2. Tessalon Perles p.r.n. 3. Cepastat lozenges p.r.n. 4. Morphine p.r.n. 5. Zofran p.r.n. 6. MiraLAX p.r.n. 7. Prednisone 40 mg p.o. q.a.m. 8. Dexamethasone. 9. Seroquel 25 mg p.o. at bedtime. HISTORY OF PRESENT ILLNESS/HOSPITAL COURSE: The patient is a 30-year-old G1, now P1, who delivered a 34-week and 6-day-old via primary low-transverse on 05/25/2020 for placental abruption and subsequently had a prolonged hospitalization for acute hypoxic respiratory failure due to COVID pneumonia. She was discharged on 06/02/2020, after receiving both remdesivir and convalescent plasma during the hospitalization, on 5 L of oxygen nasal cannula, and Case Management had arranged for her to go home with home oxygen. She had been receiving therapeutic Lovenox during the initial hospitalization, but did not go home on any anticoagulation. The patient was admitted on 06/04/2020 after having shortness of breath and she was found to have bilateral pulmonary emboli on CTA. IV dexamethasone was continued and tapered throughout her stay for concerns about continued COVID pneumonia. The patient when admitted was on high-flow nasal cannula, which was continuously weaned throughout the hospitalization. On the day of discharge the patient was able to tolerate room air while at rest and required 2 L of oxygen nasal cannula while mobilizing out of bed. Throughout the hospitalization, the patient's respiratory status did continue to improve as she was able to be weaned off the high-flow; however, the patient continued daily to complain of shortness of breath and intermittently what appeared to be musculoskeletal chest pain. Pulmonology, Dr. Greer, was consulted and he recommended starting the patient on doxycycline for possible concurrent pneumonia and starting her on mometasone as well, which were both sent home with the patient upon discharge. After evaluating the patient, he did state that she was stable for discharge from a pulmonary perspective as she was stable on minimal oxygen and she did have oxygen to go home with. After the patient had complained of chest pain, multiple labs had been done several times throughout her hospital stay exploring her troponins, and multiple EKGs were performed, all of which never amounted to anything cardiac in nature. An echo was performed, see above. Cardiology, Dr. Lawrence, was consulted and he evaluated the patient and stated that the patient was stable from a cardiac standpoint to be discharged as most of her symptoms were likely due to the pulmonary emboli. Her pulmonary artery pressure was normal on the echo. The patient required extensive conversation daily throughout the hospitalization as she was not able to grasp the instructions that were provided to her or that she was showing signs of improvement every day, even while using a leak detector. In addition, her family members often required >40 minute phone calls every day with regard to updates as they too had difficulty understanding her prognosis and had many questions daily, often repeated from the day prior. At one point, the patient had asked about requiring a lung transplant or tPA, both of which the supervisor welding equipment repairer and the developer architect had recommended against. The patient was reassured every day that she did not need these and that we would expect her symptoms to improve with her eliquis. The patient was given Seroquel during the hospitalization to help with sleep, as she would be increasingly anxious at night and would consistently watch her pulse oximeter and her pulse rate on the telemetry box and become anxious every time there would be a change in the numbers. [facility] was consulted during the hospitalization to assess the patient's safety upon returning home, and upon their evaluation, they determined that there was no reason for the patient to have an admission into a psychiatric hospital and that she would be safe to go home. Marlow scale was performed with the patient and she had scored a 7 upon evaluation, and [facility] had commented about the possibility of some underlying depression. The patient was encouraged on the day of discharge to follow up with her primary care physician within 1 week after being home and being able to [place]ma with her baby and her , who she had not spent much time with since giving to the baby, to see if her mood would increase at that time. The patient stated she did not have a primary care physician, so resources were provided to her and it was recommended that she find one to be able to see within 7 days. It was also recommended the patient to follow up with Dr. Boggs as she is a patient as well. The patient's nifedipine was continued throughout the hospitalization for her hypertension and this has shown to keep her blood pressure relatively stable. There was a discussion with both the patient and her family on the day of discharge that it had almost been an entire month since her positive COVID test as this was done on May 17. Per the current CDC recommendations, those patients with severe illness and those who are immunodepressed are recommended to quarantine for 20 days, which I explained to both the patient and her parents that she has had greater than 20 days since the first positive COVID test. It was discussed that she should continue to work on mobilizing herself with oxygen while at home and that I would expect her oxygen saturation to continue to improve with decreased oxygen requirements. In addition, PT was arranged for the patient before discharge. On the day of discharge, the patient's medical team, supervisor welding equipment repairer, and developer architect had all recommended that the patient is stable for discharge at this time. This was conveyed to the patient and her family with ED precautions discussed. DISPOSITION: Stable DISCHARGE INSTRUCTIONS: 1. Location: Home with home oxygen and home PT. 2. Diet: Regular. 3. Activity: As tolerated and to work with PT to increase mobility while weaning oxygen. 4. Follow up with primary care provider and Dr. Boggs within 7 days. I spent > 30 minutes working on the discharge of this patient including discussion with the patient's nurses, discussion with the patient, and discussion with the patient's family, as well as working with Case Management to finalize PT and ensuring that the patient would be able to go home with home oxygen. Job ID: [id number] [id number]
== END 2020-06-16 18:18 | disposition home health service (06) | DRG 776 ==
LOC: ERS 15:39 → 2SW 17:42
PROVIDERS: ADMIT Family Medicine; ATTEND Family Medicine
PROC: 8E0ZXY6 Isolation (ICD-10-PCS; principal; 2020-06-04)
DX: O98.53 Other viral diseases complicating the puerperium (principal); U07.1 COVID-19; I26.99 Other pulmonary embolism without acute cor pulmonale; O88.23 Thromboembolism in the puerperium; J96.01 Acute respiratory failure with hypoxia; J12.89 Other viral pneumonia; O99.355 Diseases of the nervous system complicating the puerperium; O14.95 Unspecified pre-eclampsia, complicating the puerperium; M94.0 Chondrocostal junction syndrome [Tietze]; O99.53 Diseases of the respiratory system complicating the puerperium; F43.0 Acute stress reaction; O99.345 Other mental disorders complicating the puerperium; Z79.899 Other long term (current) drug therapy
CPT/HCPCS: 36415; 36416; 71045; 71275; 80053; 81025; 82550; 82553; 82565; 82728; 82805; 83605; 83615; 83880; 84145; 84484; 85014; 85018; 85025; 85049; 85379; 86140; 87040; 87635; 93005; 93010; 93306; 94664; 96365; 96366; 96375; J0456; J0696; J1100; J1642; J1650; J2270; J7512; J8540; Q9967; U0003